=== PATIENT | female | born 1950 | race Caucasian/White ===

== ENCOUNTER 2020-05-14 10:36 | Outpatient (CLI) | payer MEDICARE, SELFPAY ==
--- NOTE | ~2020-05-14 | CT_ITS ---
EXAMINATION: CT abdomen pelvis wo/w con DATE: 05/14/2020 11:18 INDICATION: Other unspecified disorders of the kidney and ureter, right kidney mass TECHNIQUE: Computed tomography (CT) of the abdomen was performed without intravenous contrast. CT of the abdomen and pelvis was then performed with a total of 100 mL Omnipaque 350 intravenous contrast u sing a double-bolus technique for simultaneous opacification of the renal parenchyma and renal collec ting system. The dose-length product (DLP) was 1936.62 mGy-cm. Automated exposure control and iterati ve reconstruction technique were employed. COMPARISON: 09/29/2019 FINDINGS: There are clustered nodules in the right lower lobe which demonstrates increase in size sin ce the comparison examination. The heart size is normal. A small sliding hiatal hernia is again seen. A stable 8 mm area of low attenuation in the spleen likely represents a cyst. The liver and adrenal glands are normal. The gallbladder is surgically absent. There is fatty infiltration the head of the pancreas. There is a stable 12 mm hyperdense, nonenhancing mass of the right kidney. Peripelvic cysts are noted in the left kidney. There is calcified atherosclerosis of the aorta and many of the other arteries. No pathologically enlarged abdominal or pelvic lymph nodes are identified. There is no free intraperitoneal gas or evidence of bowel obstruction. Colonic diverticulosis is present without evid ence of diverticulitis. Again noted is a right lower quadrant incisional hernia containing fat. There is mild lumbar spondylosis. IMPRESSION: 1. Stable, nonenhancing right kidney mass, consistent with hemorrhagic or proteinaceous cyst. 2. Increasing nodular opacities of the right lower lobe, likely infectious or inflammatory. Recommend low-dose chest CT follow-up in three months. Reviewed, dictated and finalized at location A. IMPRESSION: 1. Stable, nonenhancing right kidney mass, consistent with hemorrhagic or prote inaceous cyst. 2. Increasing nodular opacities of the right lower lobe, likely infectious or i nflammatory. Recommend low-dose chest CT follow-up in three months.
[2020-05-14 11:09] LABS: Estimated Glomerular Filt Rate > 60
== END 2020-05-14 10:37 | disposition home or self-care (01) ==
PROVIDERS: PCP Internal Medicine; Visit Provider Internal Medicine
DX: N28.89 Other specified disorders of kidney and ureter (principal); R91.8 Other nonspecific abnormal finding of lung field
CPT/HCPCS: 36415; 74177; 74178; Q9967

== ENCOUNTER 2020-07-09 09:20 | Outpatient (CLI) | payer MEDICARE, SELFPAY ==
--- NOTE | 2020-07-09 09:29 | EST_ITS ---
Patient Info Name: Susanna Beaulieu Age: 69 years : 1950 Gender: Female Ht: 62 in Wt: 218 lbs BSA: 2.13 m2 HR: 73 bpm BP: 132 / 63 mmHg Technical Quality: Good Exam Date: 07/09/2020 9:59 AM Exam Location: [facility] Exam Room: stress lab Patient Status: Outpatient Admit Date: 07/09/2020 Staff Ordering Physician: Ne Vernon PIN CLE[employer]ER-[employer] Assistant: Geneva Major RCS Attending Provider: JOE SULLIVAN DO Referring Physician: Saulo SALCEDO; Exercise Technologist: Mariya Chan RDCS Exercise Physician: Joe Sullivan DO Exam Type: CA stress echo Study Info Indications R07.9 - Chest pain, unspecified Treadmill exercise stress echocardiogram is performed. Summary 1. 1. Negative Danish exercise stress test for ischemic ST changes by ECG criteria. 2. 2. Mildly reduced functional capacity, achieving 7 METs of workload. 3. 3. Baseline hypertension. 4. 4. Appropriate HR response to exercise. 5. 5. Appropriate HR recovery at 1 minute post exercise. 6. 6. Negative stress echocardiogram for ischemia by wall motion analysis. 7. 7. Patient informed of the above results. Stress Echo Findings Left Ventricle Appropriate increase in LV endocardial thickening with systole. Appropriate augmentation of contractility with systole. No wall motion abnormality. Left Ventricle Normal LV systolic function. No wall motion abnormality. Protocol: Danish Stress ECG Details Stage: REST Duration (min): 8 min : 42 sec Speed (mph): 0.0 Grade (%): 0 HR (bpm): 73 SBP (mmHg): 144 DBP (mmHg): 75 METS: --- Stage: REST Duration (min): 18 min : 49 sec Speed (mph): 0.0 Grade (%): 0 HR (bpm): 86 SBP (mmHg): 144 DBP (mmHg): 75 METS: --- Stage: STAGE 1 Duration (min): 1 min : 0 sec Speed (mph): 1.7 Grade (%): 10 HR (bpm): 97 SBP (mmHg): 144 DBP (mmHg): 75 METS: --- Stage: STAGE 1 Duration (min): 2 min : 0 sec Speed (mph): 1.7 Grade (%): 10 HR (bpm): 112 SBP (mmHg): 144 DBP (mmHg): 75 METS: --- Stage: STAGE 1 Duration (min): 3 min : 0 sec Speed (mph): 1.7 Grade (%): 10 HR (bpm): 119 SBP (mmHg): 172 DBP (mmHg): 63 METS: --- Stage: STAGE 2 Duration (min): 1 min : 0 sec Speed (mph): 2.5 Grade (%): 12 HR (bpm): 131 SBP (mmHg): 172 DBP (mmHg): 63 METS: --- Stage: STAGE 2 Duration (min): 2 min : 0 sec Speed (mph): 2.5 Grade (%): 12 HR (bpm): 138 SBP (mmHg): 196 DBP (mmHg): 68 METS: --- Stage: STAGE 2 Duration (min): 2 min : 1 sec Speed (mph): 0.0 Grade (%): 0 HR (bpm): 138 SBP (mmHg): 196 DBP (mmHg): 68 METS: --- Stage: RECOVERY Duration (min): 0 min : 58 sec Speed (mph): 0.0 Grade (%): 0 HR (bpm): 116 SBP (mmHg): 132 DBP (mmHg): 61 METS: --- Stage: RECOVERY Duration (min): 1 min : 58 sec Speed (mph): 0.0 Grade (%): 0 HR (bpm): 100 SBP (mmHg): 132 DBP (mmHg): 61 METS:
== END 2020-07-09 09:21 | disposition home or self-care (01) ==
LOC: ANHCARD 09:21
PROVIDERS: PCP Internal Medicine; Visit Provider Nurse Practitioner
DX: R07.9 Chest pain, unspecified (principal)
CPT/HCPCS: 93351

== ENCOUNTER 2020-07-16 07:34 | Outpatient (CLI) | payer MEDICARE, SELFPAY ==
--- NOTE | ~2020-07-16 | CT_ITS ---
EXAMINATION: CT brain wo con DATE: 07/16/2020 07:54 INDICATION: Headache TECHNIQUE: Computed tomography (CT) of the head was performed without intravenous contrast. Sagittal and coronal reconstructions were performed. The mA was adjusted according to patient size. Iterative reconstruction technique was employed. The dose-length product was 529.67 mGy-cm. COMPARISON: None FINDINGS: No acute intracranial hemorrhage, acute infarction or abnormal extra axial fluid collection. Ventricl es are normal and symmetric. No mass/mass effect. Changes of bilateral intraocular lens replacement. The orbits, paranasal sinuses and mastoid air cells are normal. IMPRESSION: 1. Normal brain. No acute intracranial process. Reviewed, dictated and finalized at location A.
== END 2020-07-16 07:35 | disposition home or self-care (01) ==
PROVIDERS: PCP Internal Medicine; Visit Provider Internal Medicine
DX: R51 Headache (principal)
CPT/HCPCS: 70450

== ENCOUNTER 2020-08-08 09:38 | Outpatient (CLI) | payer MEDICARE, SELFPAY ==
--- NOTE | ~2020-08-08 | MM_ITS ---
EXAMINATION: MM screening [facility] BI w gil HISTORY: Screening mammogram TECHNIQUE: Craniocaudal and mediolateral oblique 3-D tomosynthesis images were obtained and synthetic 2-D images were generated. CAD analysis was submitted and interpreted. COMPARISON: 07/30/2018, 11/02/2012 bilateral digital screening mammogram examinations BREAST PARENCHYMAL COMPOSITION: There are scattered areas of fibroglandular density.......... FINDINGS: Focal new architectural distortion is suggested in the outer mid right breast (craniocaudal Tomosynthesis image 29/72). Diagnostic right mammogram and right breast ultrasound examination are r ecommended. Otherwise there is no evidence of suspicious mass, calcification, or architectural distortion to sugg est malignancy in either breast. There has been no other suspicious interval change. IMPRESSION: 1. Focal new architectural distortion suggested in outer mid right breast 2. Diagnostic right mammogram and right breast ultrasound examination are recommended. BI-RADS Category 0: Incomplete: Needs additional imaging evaluation. Reviewed, dictated and finalized at location A. IMPRESSION: 1. Focal new architectural distortion suggested in outer mid right breast 2. Diagnostic right mammogram and right breast ultrasound examination are recom mended. BI-RADS Category 0: Incomplete: Needs additional imaging evaluation.
--- NOTE | ~2020-08-08 | DEXA_ITS ---
Bone Density Report Name: Susanna Beaulieu Age: 69 Sex: Female Ethnicity: White Date of : 1950 Indication: osteopenia; monitoring treatment; parental hip fracture; asthma or emphysema; hysterectomy; Referring Provider: Ne Vernon Study: Bone densitometry was performed. Exam Date: August 08, 2020 Accession number: [id number] Bone Density: Region BMD T-score Z-score Classification AP Spine (L1, L3, L4) 0.871 -1.7 0.5 Osteopenia Femoral Neck (Left) 0.673 -1.6 0.2 Osteopenia Total Hip (Left) 0.855 -0.7 0.8 Normal Total Hip Bilateral Avg 0.885 -0.4 1.1 Normal Femoral Neck (Right) 0.752 -0.9 0.9 Normal Total Hip (Right) 0.914 -0.2 1.3 Normal World Health Organization criteria for BMD impression classify patients as: Normal (T-score at or above -1.0), Osteopenia (T-score between -1.0 and -2.5), or Osteoporosis (T-score at or below -2.5). 10-year Fracture Risk: FRAX not reported because: Treated for osteoporosis Previous Exams: Region Exam Age BMD T-score BMD Change BMD Change Date g/cm2 vs Baseline vs Previous AP Spine(L1, L3, L4) 08/08/2020 69 0.871 -1.7 0.048(5.8%)# 0.048(5.8%)# 11/02/2012 62 0.823 -2.1 Total Hip(Left) 08/08/2020 69 0.855 -0.7 -0.072(-7.8%)# -0.072(-7.8%)# 11/02/2012 62 0.928 -0.1 Total Hip(Right) 08/08/2020 69 0.914 -0.2 -0.024(-2.6%)# -0.024(-2.6%)# 11/02/2012 62 0.939 0.0 *Denotes significance at 95% confidence level, LSC for AP Spine = 0.022 g/cm2, LSC for Total Hip = 0.027 g/cm2 Clinical Information Provided by Patient: Parent has had a hip fracture Is being treated for osteoporosis Has used the following medications: Vitamin D, Calcium Has the following medical conditions: Asthma or Emphysema, Hysterectomy Patient maximum height was 62 Menopause Age: 55 No regular weight bearing exercise Drinks caffeinated beverages Onset of menses at age 13 Number of children 2 Impression: The patient has low bone mass, based on the Total Spine T-score. The patient has risk factors, including: parental hip fracture. No significant bone loss was observed. Discussion: PATIENT UNDER TREATMENT WITH NO SIGNIFICANT BMD LOSS SINCE LAST EXAM. In an untreated patient, BMD typically declines with age. A lack of decline or gain is usually a sign that treatment is efficacious and fracture risk is reduced. It is important to ask patients whether they are taking their medications and to encourage continued and approp
== END 2020-08-08 09:39 | disposition home or self-care (01) ==
LOC: ANHIMG 09:39
PROVIDERS: PCP Internal Medicine; Visit Provider Nurse Practitioner
DX: Z12.31 Encounter for screening mammogram for malignant neoplasm of breast (principal); Z78.0 Asymptomatic menopausal state; M85.88 Other specified disorders of bone density and structure, other site; R92.8 Other abnormal and inconclusive findings on diagnostic imaging of breast
CPT/HCPCS: 77063; 77067; 77080

== ENCOUNTER 2020-08-31 11:08 | Outpatient (CLI) | payer MEDICARE, SELFPAY ==
--- NOTE | ~2020-08-31 | MMUS_ITS ---
EXAMINATION: MM diagnostic mammo unilat RT, US breast RT limited HISTORY: Follow-up right breast asymmetry TECHNIQUE: Additional 3-D tomosynthesis images of the right breast were performed and synthetic 2-D i mages were generated. CAD analysis was submitted and interpreted. High resolution Limited right breas t ultrasound was performed. COMPARISON: 08/08/2020 BREAST PARENCHYMAL COMPOSITION: Breast composed of scattered areas of fibroglandular density. FINDINGS: MAMMOGRAPHIC FINDINGS: There is persistent asymmetry laterally in the right breast, on CC view. There are no discrete masses or suspicious calcifications. No architectural distortion. ULTRASOUND: Right breast ultrasound: At 8:00 in the subareolar location of the right breast there is an 12 mm oval hypoechoic mass with sl ightly lobulated margins. Mixed posterior attenuation. No internal vascularity. IMPRESSION: 1. Lobulated 12 mm right breast mass at 8:00 in the subareolar location of the right breast. 2. Ultrasound-guided right breast biopsy recommended. BI-RADS category 4, suspicious findings. Reviewed, dictated and finalized at location A. IMPRESSION: 1. Lobulated 12 mm right breast mass at 8:00 in the subareolar location of the right breast. 2. Ultrasound-guided right breast biopsy recommended. BI-RADS category 4, suspicious findings.
== END 2020-08-31 11:09 | disposition home or self-care (01) ==
LOC: ANHIMG 11:11
PROVIDERS: PCP Internal Medicine; Visit Provider Nurse Practitioner
DX: R92.8 Other abnormal and inconclusive findings on diagnostic imaging of breast (principal)
CPT/HCPCS: 76642; 77065

== ENCOUNTER 2020-09-06 10:38 | Outpatient (CLI) | payer MEDICARE, SELFPAY ==
--- NOTE | ~2020-09-06 | MMUS_ITS ---
US breast biopsy RT w image, MM post biopsy invasive RT EXAMINATION: US GUIDED NEEDLE BIOPSY WITH VAC UUM ASSISTANCE DATE: 09/06/2020 11:46 CDT INDICATION: Right breast mass seen on prior examination. Ultrasound-guided core biopsy is requested to evaluate for malignancy. TECHNIQUE AND FINDINGS: The risks and potential benefits of the procedure were discussed with the patient, and written inform ed consent was obtained. After sterile preparation of the right breast, 1% lidocaine was utilized fo r local anesthesia. 1% lidocaine with epinephrine was used for deep anesthesia. A 10G vacuum-assisted biopsy gun needle was advanced through to the outer edge of the region of inter est from a superior approach utilizing sonographic guidance. A total of three tissue core samples we re obtained through the lesion. An Inrad tissue marker clip was then placed at the biopsy site. Hemo stasis was achieved. The patient tolerated procedure well and there was no evidence of immediate complication. The patien t was given verbal instructions partly is from the department. Right breast mammograms to document t issue marker clip placement. The tissue samples were submitted to surgical pathology for histologic a nalysis. IMPRESSION: 1. Successful ultrasound-guided vacuum-assisted biopsy of right breast mass at the 8:00 position in the subareolar location with tissue marker placement. Please refer to pathology report for histologic analysis. Reviewed, dictated and finalized at location A. IMPRESSION: 1. Successful ultrasound-guided vacuum-assisted biopsy of right breast mass at the 8:00 position in the subareolar location with tissue marker placement. Ple ase refer to pathology report for histologic analysis.
== END 2020-09-06 10:39 | disposition home or self-care (01) ==
PROVIDERS: PCP Internal Medicine; Visit Provider Nurse Practitioner
DX: R92.8 Other abnormal and inconclusive findings on diagnostic imaging of breast (principal)
CPT/HCPCS: 19083; 88305

== ENCOUNTER 2020-09-28 13:04 | Outpatient (CLI) | payer MEDICARE, SELFPAY ==
--- NOTE | ~2020-09-28 | CT_ITS ---
EXAMINATION:CT chest wo con DATE: 09/28/2020 13:18 INDICATION: Other nonspecific abnormal finding in lung field. TECHNIQUE: Computed tomography (CT) of the chest was performed without intravenous contrast. Automate d exposure control and iterative reconstruction technique were employed. The dose-length product (DLP ) was 308.18 mGy-cm. COMPARISON: CT abdomen and pelvis 05/14/2020 FINDINGS: There is mild scarring at right lung apex. There is mild atelectasis bilaterally. There is mild scarring in paraspinal right lower lobe. There are clusters of nodules in the lower lobes, right middle lobe, and left upper lobe with the largest nodule measuring 6 mm in right lower lobe, improve d from 10 mm on 05/14/2020. The next largest nodule measures 4 mm. No pleural effusion. Right thyroid lobe is enlarged. The heart size is normal. There are coronary artery calcifications. No pericardial effusion. There is a small sliding hiatal hernia. There are changes of cholecystectomy. There is mild thoracic spondylosis. IMPRESSION: 1. Small pulmonary nodules, likely benign. Reviewed, dictated and finalized at location A. 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
== END 2020-09-28 13:05 | disposition home or self-care (01) ==
LOC: ANHIMG 13:06
PROVIDERS: PCP Internal Medicine; Visit Provider Internal Medicine
DX: R91.8 Other nonspecific abnormal finding of lung field (principal)
CPT/HCPCS: 71250

== ENCOUNTER 2021-04-29 13:30 | Emergency (ER) | payer MEDICARE, SELFPAY ==
--- NOTE | ~2021-04-29 | US_ITS ---
EXAMINATION: US venous doppler [facility] DATE: 04/29/2021 15:19 INDICATION: Left lower limb pain. TECHNIQUE: Grayscale ultrasound images without and with compression and Doppler ultrasound images of the left lower extremity veins were obtained. COMPARISON: None. FINDINGS: The visualized portions of left common femoral vein, profunda (deep) femoral vein, femoral vein, popl iteal vein, peroneal veins, posterior tibial veins, and greater saphenous vein outflow are patent. Th ere is no visible abnormality in the patient's area of pain. IMPRESSION: 1. No deep venous thrombosis. Reviewed, dictated and finalized at location A.
[2021-04-29 13:40] VITALS: BP 175/95; PULSE 87; RESP 18; TEMP 36.7; O2SAT 99
--- NOTE | 2021-04-29 13:45 | PC.NURSE ---
Arrives ambulatory steady gait from triage, c/o LLE pain x few days, denies falls or trauma, took a baby ASA this am as she was concerned for blood clot. Pt states a few years ago she may have had possible blood clot they gave a me a shot of blood thinner because it was too late to do an ultrasound, then the next day they did the US and it was negative . Denies SOB, no resp distress
--- NOTE | 2021-04-29 14:45 | ED.EXTPRO ---
HPI - Extremity Problem General Chief complaint: Extremity Problem,Nontraumatic Stated complaint: left calf pain Time Seen by Provider: 04/29/21 13:54 Source: patient Mode of arrival: ambulatory Limitations: no limitations History of Present Illness HPI Narrative: Patient is a 70-year-old female who presents complaining of posterior left leg pain x3 or 4 days. She reports increased pain over the past day. Denies history of DVT. Reports tenderness with palpation to left posterior calf. Mild swelling noted. She denies taking any [id number]-[id number]-[id number] medications for pain. She reports calling PCP office and being sent to ED for further evaluation. MD Complaint: extremity pain Related Data Home Medications Medication Instructions Recorded Confirmed diphenoxylate-atropine 2.5 1 tablet PO DAILY tablet 03/27/21 03/27/21 mg-0.025 mg tablet mirabegron 25 mg tablet,extended 25 mg PO DAILY 03/28/21 03/28/21 release 24 hr Allergies Allergy/AdvReac Type Severity Reaction Status Date / Time No Known Allergies Allergy Unverified 04/29/21 14:02 Review of Systems Review of Systems: Narrative: CONSTITUTIONAL: Denies fever, chills, or sweats. EYES: Denies visual changes, redness, or discharge. ENT: Denies rhinorrhea, congestion, sore throat, or otalgia. CARDIOVASCULAR: Denies chest pain, palpitations, or edema. RESPIRATORY: Denies cough or dyspnea. GASTROINTESTINAL: Denies abdominal pain, nausea, vomiting, or diarrhea. GENITOURINARY: Denies dysuria or hematuria. SKIN: Denies rash or itching. MUSCULOSKELETAL: Reports left leg pain NEUROLOGIC: Denies headache, numbness, dizziness, or weakness. PSYCHIATRIC: Denies anxiety or depression. [facility] Past Medical History Medical History Chest pain Cough Dyslipidemia (high LDL; low HDL) Gastro-esophageal reflux disease without esophagitis Hypovitaminosis D Left lower quadrant pain Mass of right kidney Menopausal osteoporosis Mild intermittent asthma, uncomplicated Osteopenia Overactive bladder Screening for breast cancer Urinary urgency Surgical History Surgical History H/O: hysterectomy History of 2 sections History of appendectomy History of breast biopsy History of cholecystectomy Family History Family History Mother Family history of obesity Hypertension Family history of atrial fibrillation Family history of congestive heart failure Father Hypertension Cerebrovascular accident Patient's father is Family history of congestive heart failure Sibling History of skin cancer Social History Social History Smoking packs per day: 2 Smoking cigarettes per day: 40.0 Years smoked: 12 Smoking pack-years: 24.00 Smoking status: Former smoker Tobacco type: cigarettes Second hand tobacco smoke exposure: Yes Smoking end date: 11/23/88 Alcohol intake: current Drinks per week: 4 Gender identity (if verbalized by the patient): Female Comments At the time of signature, I have reviewed and agree with nursing past medical, surgical, social, and family history unless otherwise noted. Please see nursing chart for further information. There is no relevant family history pertinent to the presenting complaint. Exam Narrative: Exam Narrative: GENERAL: Well-appearing, well-nourished, and in no acute distress. HEAD: Normocephalic, atraumatic. EYES: EOMI. No redness or drainage. Conjunctiva are normal. ENT: Mucous membranes pink and moist. CHEST: No respiratory distress. Clear to auscultation. HEART: Regular rate and rhythm. No murmur appreciated. Normal peripheral pulses. EXTREMITIES: Tenderness with palpation to left posterior calf and posterior knee. Mild edema noted to the left lower extremity. SKIN: Warm, dry, no
--- NOTE | 2021-04-29 15:13 | PC.NURSE ---
Pt returned from US via WC, pt and updated on POC. No resp distress, call light within reach
== END 2021-04-29 16:00 | disposition home or self-care (01) ==
PROVIDERS: Emergency Provider Nurse Practitioner; PCP Internal Medicine
DX: S86.912A Strain of unspecified muscle(s) and tendon(s) at lower leg level, left leg, initial encounter (principal); E78.5 Hyperlipidemia, unspecified; K21.9 Gastro-esophageal reflux disease without esophagitis; E55.9 Vitamin D deficiency, unspecified; M81.0 Age-related osteoporosis without current pathological fracture; M85.80 Other specified disorders of bone density and structure, unspecified site; N32.81 Overactive bladder; Z87.891 Personal history of nicotine dependence; R03.0 Elevated blood-pressure reading, without diagnosis of hypertension
CPT/HCPCS: 93971; 99284

== ENCOUNTER 2021-11-21 13:30 | Outpatient (RCR) | payer MEDICARE, SELFPAY ==
--- NOTE | 2021-10-24 10:23 | PTOPEVAL ---
PHYSICAL THERAPY EVALUATION AND PLAN OF CARE 10-24-21 Thank you for referring Susanna Beaulieu to [facility], for the diagnosis of R upper arm pain. Susanna is scheduled to be seen for therapy? 1-2 x/week for 4 weeks. Please review, sign, date and return this plan of care JOSEFA. I agree with and certify that the following plan of care is medically necessary. Referring Physician Date Attending Provider: Antonio Villarreal DO *PT Outpatient Evaluation Document 10/24/21 09:30 RADHA (Rec: 10/24/21 10:23 RADHA [id number]) Past Medical History Source of Past Medical History Patient Neurological History Hx Neurological Disorders No Significant History Cardiovascular History Hx Hypercholesterolemia Yes: meds Respiratory History Hx Asthma Yes Gastrointestinal History Hx Appendectomy Yes Musculoskeletal History Hx Orthopedic Surgery Yes: R knee arthroscopy Hx Other Musculoskeletal Disorders Yes: B knee pain; this R shoulder pain Endocrine History Hx Endocrine Disorders No Significant History Other History Hx Other Medical Conditions Yes: obesity Evaluation Information Problem Diagnosis R upper arm pain Onset Jul 2021 Subjective Information no trauma or injury to R arm; Query Text:As Reported By Patient/ gradual onset of pain R Family shoulder;no imaging of shoulder Previous Treatments Previous Treatments For This Problem about 10 yr ago, therapy for R upper trunk/shoulder Prior Level of Function Activity Level (Last 3 Months) Occupation retired Hand Dominance Ambidextrous Activity of Daily Living Ability Independent Indoor/Home Mobility Independent Community Mobility Independent Stairs Ability Independent Functional Cognition (Planning, Shopping Independent , Taking Medications) Cooking Yes Cleaning Yes Laundry Yes Shopping Yes Driving Yes Comments Additional Prior Level of Function can do all home tasks; Comments increase pain with reaching arm out to the side; Pain Assessment Timing of Pain Assessment Timing of Pain Assessment Assessment Pain Scale Pain Scale Used Numeric (1 - 10) Self Report Pain Assessment Right Arm(s) Reported Pain Level 1 Pain Frequency Acute,Continuous Other Pain Description bone hurts- medial aspect of upper humerus Lowest Pain Intensity 0 Greatest Pain Intensity 6 Other Pain Aggr
--- NOTE | 2021-11-21 13:53 | PTOPEVAL ---
PHYSICAL THERAPY DISCHARGE 11-21-21 Refer to the clinical summary below, for her status today, compared to the initial evaluation. She has improved and the goals were partially achieved. Discharge PT services, and she is to continue with her home exercise program. Thank you for referring Susanna Beaulieu to [facility].? Please review, sign, date and return this Discharge report JOSEFA. I agree with and certify that the following plan of care is medically necessary. Referring Physician Date Attending Provider: Antonio Villarreal DO *PT Outpatient Discharge Document 11/21/21 13:15 RADHA (Rec: 11/21/21 13:53 RADHA [id number]) Subjective Information Susanna reports: shoulder is Query Text:As Reported By Patient/ better, can reach out for Family coffee cup on the table with only little pain, sometimes does not hurt at all when do it; ready to be finished with PT and do her exercises on her own. Pain Assessment Timing of Pain Assessment Timing of Pain Assessment Assessment Pain Scale Pain Scale Used Numeric (1 - 10) Self Report Pain Assessment Right Arm(s) Reported Pain Level 0 Pain Frequency Chronic,Intermittent Lowest Pain Intensity 0 Greatest Pain Intensity 1 Other Pain Aggravating Factors reaching R arm out and to side ; Pain Score Pain Score 0: Self Report Additional Pain Score Comments when reaching out and to side for coffee cup-- increase pain and stress of shoulder ; do OK reaching up to put dishes away on kitchen shelf; Upper Extremity Range of Motion General Upper Extremity Range of Motion Gross Upper Extremity Range of Motion R shoulder active ROM flexion, Comments abduction, IR and ER motions are WNL, without an increase in pain reported; with combined abduction to 90' and ER- reports increased pain- reaching out to the side Upper Extremity Muscle Strength Testing General Upper Extremity Strength Gross Upper Extremity Strength Comments functional strength testing with activity: - prone scapular adduction with arm at 90' x 20 reps; overhead lift to neutral x 15 reps; - standing: isometric trunk with back to the wall; pec stretching in doorway,
== END 2021-11-26 08:15 | disposition home or self-care (01) ==
LOC: ANHPT 13:30
PROVIDERS: PCP Internal Medicine; Visit Provider Internal Medicine
DX: M79.622 Pain in left upper arm (principal); M79.621 Pain in right upper arm
CPT/HCPCS: 97110; 97161

== ENCOUNTER 2022-03-11 09:10 | Outpatient (CLI) | payer MEDICARE, SELFPAY ==
--- NOTE | ~2022-03-11 | CT_ITS ---
EXAMINATION: CT brain wo con DATE: 03/11/2022 09:31 INDICATION: Right frontal headache. TECHNIQUE: Computed tomography (CT) of the head was performed without intravenous contrast. The mA wa s adjusted according to patient size. Iterative reconstruction technique was employed. The dose-lengt h product was 529.67 mGy-cm. COMPARISON: Head CT 07/16/2020 FINDINGS: There is no intracranial hemorrhage, acute infarction, or abnormal intracranial mass lesion . The ventricles are normal in size. There are likely changes of ocular lens replacement surgeries. T here is mild mucosal thickening in the paranasal sinuses. The mastoid air cells are normal. IMPRESSION: 1. Normal brain. Reviewed, dictated and finalized at location B. IMPRESSION: 1. Normal brain.
== END 2022-03-11 09:11 | disposition home or self-care (01) ==
PROVIDERS: PCP Internal Medicine; Visit Provider Internal Medicine
DX: R51.9 Headache, unspecified (principal)
CPT/HCPCS: 70450

== ENCOUNTER 2022-05-27 09:30 | Outpatient (RCR) | payer MEDICARE, SELFPAY ==
--- NOTE | 2022-05-05 10:20 | PTOPEVAL ---
PHYSICAL THERAPY EVALUATION AND PLAN OF CARE Thank you for referring Susanna Beaulieu to [facility].? The patient is scheduled to be seen in 3 weeks for physical therapy follow up. Please review, sign, date and return this plan of care JOSEFA. I agree with and certify that the following plan of care is medically necessary. Referring Physician Date Attending Provider: Hi Anderson MD Diagnosis left knee OA Onset chronic Subjective Information States she has been having Query Text:As Reported By Patient/ left knee pain. States she Family needs a knee replacement. Doctor wants her to lose weight before she has procedure. Has good days and bad days. States that at any point she has felt sharp pains , dull pains, she feels like the knee cap is falling away. States she will use a cane for a little bit in the morning at home and that seems to help decrease pain the rest of the day. Left Knee(s) Reported Pain Level 4 Knee Range of Motion Left Knee Flexion Range of Motion: 104 Knee Extension Range of Motion: -10 Hip Strength Left Hip Flexion Strength 4 Good Hip Extension Strength 4- Good - Hip Abduction Strength 4- Good - Knee Strength Left Knee Flexion Strength 4 Good Knee Extension Strength 3+ Fair + Knee Strength Comments poor to fair quad set Muscle Length Testing Right Prone Knee Flexor Muscle Length 110deg Left Prone Knee Flexor Muscle Length 85deg Palpation increased muscle tension noted to left distal quadriceps with mild tenderness noted Other Gait Observations mild Trendelenburg PT Clinical Summary Susanna is a 71 yo female presenting to outpatient physical therapy for evaluation of left knee pain with OA. Evaluation reveals poor left quadriceps activation and poor gluteal activation in stance phase walking and stair climbing. She also demonstrates decreased left knee ROM and general strength of the left LE. Susanna was provided teaching for neuro re-education for quads and gluteals and educated on home exercise program. I recommend she follow up in 3 weeks to review HEP and assess for further PT needs.
--- NOTE | 2022-05-27 10:10 | PTOPEVAL ---
PHYSICAL THERAPY DISCHARGE NOTE Thank you for referring Susanna Beaulieu to [facility].? Please review, sign, date and return this plan of care JOSEFA. I agree with and certify that the following plan of care is medically necessary. Referring Physician Date Attending provider: Hi Anderson MD Diagnosis left knee OA Onset chronic Subjective Information Continues to report that she Query Text:As Reported By Patient/ continues to pursue a knee Family replacement and she is doing her home exercises. She uses her cane in the mornings and intermittently and she finds that it helps to take the edge off. Self Report Pain Assessment Left Knee(s) Reported Pain Level 3 Pain Description Aching Pain Frequency Chronic,Continuous Lowest Pain Intensity 1 Greatest Pain Intensity 10 Pain Aggravating Factors Prolonged Position,Walking, Weight Bearing/Standing Pain Behaviors None Knee Range of Motion Left Knee Flexion Range of Motion - Active 109 Knee Extension Range of Motion - Active -5 Query Text: Lower Extremity Muscle Strength Testing Hip Strength Left Hip Flexion Strength 5 Normal Hip Extension Strength 4+ Good + Hip Abduction Strength 4+ Good + Knee Strength Left Knee Flexion Strength 5 Normal Knee Extension Strength 5 Normal Knee Strength Comments good quad set Muscle Length Testing Right Prone Knee Flexor Muscle Length ( 110deg Left Prone Knee Flexor Muscle Length ( 100deg PT Clinical Summary Susanna has been performing her HEP for 3 weeks and is already demonstrating increased motor recruitment and improved gait pattern. Her ROM is progressing and her quad set is demosntrating good activation and endurance. She will continue HEP and continue work on losing weight in order to further pursue TKA. PT Services Indicated No Rehabilitation Potential Good Patient/Caregiver's Personal Goals for decrease pain; prepare for TKA
== END 2022-05-27 13:41 | disposition home or self-care (01) ==
LOC: ANHPT 09:30
PROVIDERS: PCP Internal Medicine; Visit Provider Orthopaedic Surgery
DX: M17.12 Unilateral primary osteoarthritis, left knee (principal); M25.562 Pain in left knee
CPT/HCPCS: 97110; 97112; 97161

== ENCOUNTER 2022-07-30 15:30 | Outpatient (RCR) | payer MEDICARE, SELFPAY ==
--- NOTE | 2022-07-16 15:08 | PTOPEVAL ---
Thank you for referring Susanna Beaulieu to [facility].? She is scheduled to be seen for therapy? 2 x/week for 3 weeks. Please review, sign, date and return this plan of care JOSEFA. I agree with and certify that the following plan of care is medically necessary. Referring Physician Date Attending Provider: Antonio Villarreal DO Outpatient Past Medical History Past Medical History Source of Past Medical History Recalled from Previous Visit, Confirmed with Patient/Family Neurological History Hx Neurological Disorders No Significant History Cardiovascular History Hx Hypercholesterolemia Yes: meds Hx Hypertension Yes: meds Respiratory History Hx Asthma Yes Gastrointestinal History Hx Appendectomy Yes Musculoskeletal History Hx Arthritis Yes: fingers and knees; saw ortho dr about L TKR-not scheduled Hx Orthopedic Surgery Yes: R knee arthroscopy Hx Other Musculoskeletal Disorders Yes: B knee pain; R shoulder pain Endocrine History Hx Endocrine Disorders No Significant History Other History Hx Other Medical Conditions Yes: obesity Evaluation Information Diagnosis lower quadrant pain Onset May 23 2022 Subjective Information gradual increase in pain, no Query Text:As Reported By Patient/ trauma or injury to L leg Family Diagnostic Tests X-Rays For This Problem Yes: L knee severe tricompartment degenerative, decrease jt space Prior Level of Function Activity Level (Last 3 Months) Occupation retired Activity of Daily Living Ability Independent Indoor/Home Mobility Independent Community Mobility Independent Stairs Ability Independent Functional Cognition (Planning, Shopping Independent , Taking Medications) Cooking Yes Cleaning Yes Laundry Yes Shopping Yes Driving Yes Home Setting Mobility Assistive Devices (Used Last 3 None,Cane Months) Comments Additional Prior Level of Function use cane for first hour after Comments awakening, due to knees stiff; do pool exercises 2x/wk; Pain Assessment Pain Scale Pain Scale Used Numeric (1 - 10) Self Report Pain Assessment Left Hip Pain Frequency Acute,Intermittent Other Pain Description anterior hip--medial groin pain when put pants on,last few seconds; Lowest Pain Intensity 0
--- NOTE | 2022-09-05 11:43 | PCPTNOTE ---
PHYSICAL THERAPY DISCHARGE 09-05-22 Attending Provider: Antonio Villarreal DO Patient:Susanna Beaulieu Date of :1950 Mrs. Beaulieu has received 3 PT sessions, from July 16 to July 30, for the diagnosis of L leg pain. She then stopped attending therapy. Therefore she will be discharged at this time. The goals were not assessed. Thank you for referring this patient to [facility].
== END 2022-09-05 14:16 | disposition home or self-care (01) ==
LOC: ANHPT 15:30
PROVIDERS: PCP Internal Medicine; Visit Provider Internal Medicine
DX: R10.32 Left lower quadrant pain (principal)
CPT/HCPCS: 97035; 97110; 97140; 97161

== ENCOUNTER 2022-10-29 10:05 | Outpatient (CLI) | payer MEDICARE, SELFPAY ==
--- NOTE | ~2022-10-29 | US_ITS ---
EXAMINATION: US renal BI DATE: 10/29/2022 10:41 INDICATION: N28.1 - Cyst of kidney, acquired TECHNIQUE: Multiple grayscale and Doppler ultrasound images of the kidneys were obtained. COMPARISON: CT abdomen pelvis 05/14/2020 FINDINGS: The right kidney measures 10.9 x 5.8 x 4.5 cm. The left kidney measures 12.2 x 5.8 x 5.3 cm. The kidn eys demonstrate normal parenchymal echogenicity. 1 cm hypoechoic circumscribed partially exophytic le mateo in the right lower pole. 2 cm left parapelvic cyst or cysts. There is no hydronephrosis. The boyd dder is partially filled but grossly normal. IMPRESSION: Unremarkable renal sonogram findings. 1 cm hemorrhagic or proteinaceous right lower pole cyst. Parape lvic cyst/cysts in the left renal hilum. Reviewed, dictated and finalized at location K. P HERDER IMPRESSION: Unremarkable renal sonogram findings. 1 cm hemorrhagic or proteinaceous right l ower pole cyst. Parapelvic cyst/cysts in the left renal hilum.
== END 2022-10-29 10:06 | disposition home or self-care (01) ==
LOC: ANHIMG 10:06
PROVIDERS: PCP Internal Medicine; Visit Provider Internal Medicine
DX: N28.1 Cyst of kidney, acquired (principal)
CPT/HCPCS: 76775

== ENCOUNTER 2022-11-20 14:27 | Emergency (ER) | payer MEDICARE, SELFPAY ==
[2022-11-20 14:39] VITALS: BP 127/82; PULSE 66; RESP 16; TEMP 37; O2SAT 99
--- NOTE | 2022-11-20 14:50 | ED.URI ---
HPI - URI/Sore Throat General Chief Complaint: Upper Respiratory Infection Stated Complaint: SOB/Bodyaches Time Seen by Provider: 11/20/22 14:51 Source: patient Mode of arrival: ambulatory Limitations: no limitations History of Present Illness HPI Narrative: Ms. Beaulieu is a 72-year-old female patient presenting to the clinic today with complaints of shortness of breath, body aches, chills, cough x5 days. She reports no known fever. MD elicited complaint: cough, nasal congestion and other ( body aches and chills) Related Data Allergies Allergy/AdvReac Type Severity Reaction Status Date / Time No Known Allergies Allergy Verified 11/20/22 14:47 Review of Systems Review of Systems: Pertinent positives per HPI. Patient denies any fever, chills, rash, headache, visual changes, dizziness, shortness of breath, chest pain, palpitations, nausea, vomiting, diarrhea, constipation, abdominal pain, or any urinary issues. PMFSH Past Medical History Medical History Chest pain Cough Dyslipidemia (high LDL; low HDL) Gastro-esophageal reflux disease without esophagitis History of stress test (~2020) Hypovitaminosis D Left lower quadrant pain Mass of right kidney Menopausal osteoporosis Mild intermittent asthma, uncomplicated Obesity due to excess calories Osteopenia Overactive bladder Screening for breast cancer Urinary urgency Surgical History Surgical History H/O: hysterectomy History of 2 sections History of appendectomy History of breast biopsy x3 History of cholecystectomy History of tooth extraction Family History Family History Mother Family history of obesity Hypertension Family history of atrial fibrillation Family history of congestive heart failure Father Hypertension Cerebrovascular accident Patient's father is Family history of congestive heart failure Sibling History of skin cancer Social History Social History Smoking packs per day: 2 Smoking cigarettes per day: 40.0 Years smoked: 12 Smoking pack-years: 24.00 Smoking status: Former smoker Tobacco type: cigarettes Second hand tobacco smoke exposure: Yes Smoking end date: 11/23/88 Alcohol intake: current Drinks per week: 2 Substance use: never Substance use type: does not use Lack of Transportation: No Lack of Food: Never True Current Housing: I Have Housing Concerned About Future Housing: No Difficulty Paying Gas/Electric Bills: No Difficulty Paying for Meds: No Currently Unemployed: No Education: High School Diploma/GED Difficulty w/ Childcare or Family Care: No Gender identity (if verbalized by the patient): Female Comments At the time of my signature, I reviewed and agree with the nursing past medical, surgical, social, and family history. There is no relevant family history pertinent to the patient complaint. Exam Narrative: General: Well-developed, obese, in no apparent distress Head: Normocephalic, atraumatic Eyes: Pupils equally round and reactive to light bilaterally, EOM intact, sclera and conjunctive clear, no discharge, lids normal Ears: TMs intact and clear, ear canals clear, no drainage, grossly hearing normal. Nose: Nares patent, clear nasal discharge, no inflammation, no sinus tenderness. Mouth: Oral pharynx without lesions or masses, good dentition, MMM. postnasal drip Neck: Supple, trachea midline, no enlargement of anterior or posterior cervical nodes, no thyroid masses or goiter palpable. Cardio: Regular rate and rhythm, s1 and s2 normal, no murmur appreciated. Resp: Clear to auscultation bilaterally, no rhonchi, rales, wheezing or rubs Course Course Emergency Course: Portions of this record may hav
== END 2022-11-20 15:23 | disposition home or self-care (01) ==
PROVIDERS: Emergency Provider Nurse Practitioner Family; PCP Internal Medicine
DX: J06.9 Acute upper respiratory infection, unspecified (principal); B34.9 Viral infection, unspecified; Z20.822 Contact with and (suspected) exposure to COVID-19; Z87.891 Personal history of nicotine dependence; E78.5 Hyperlipidemia, unspecified; E66.9 Obesity, unspecified; Z68.39 Body mass index [BMI] 39.0-39.9, adult; M85.80 Other specified disorders of bone density and structure, unspecified site
CPT/HCPCS: 87426; 87804; 99213; C9803; G0463

== ENCOUNTER 2023-02-17 08:00 | Outpatient (NON) | payer MEDICARE, SELFPAY | END 2023-02-17 08:01 | disposition home or self-care (01) | LOC: ANHLAB 02-20 10:41 | PROVIDERS: PCP Internal Medicine; Visit Provider Nurse Practitioner | DX: D49.2 Neoplasm of unspecified behavior of bone, soft tissue, and skin (principal) | CPT/HCPCS: 88305; 88312 ==

== ENCOUNTER 2023-02-24 09:32 | Outpatient (CLI) | payer MEDICARE, SELFPAY ==
--- NOTE | ~2023-02-24 | CT_ITS ---
EXAMINATION: CT brain wo con INDICATION: Headache COMPARISON: 03/11/2022 TECHNIQUE: Standard unenhanced head CT. The dose-length product (DLP) was 605.33 mGy-cm. The mA was a djusted according to patient size. Iterative reconstruction technique was employed. FINDINGS: There is no acute intraparenchymal hemorrhage. No evidence of mass lesion. No evidence of a cute infarction. There is mild periventricular and subcortical hypodensity probably related to small vessel ischemic disease. There is mild prominence of the sulci and ventricles related to cerebral atr ophy. Intracranial calcified cerebral atherosclerosis is noted. There are no extra-axial collections. There is no mass effect or midline shift. Changes in the globes are likely from ocular lens surgery. The visualized sinuses and mastoid air cells are well aerated. IMPRESSION: 1. No acute intracranial abnormality. 2. Age related findings. Reviewed, dictated and finalized at location L.
== END 2023-02-24 09:33 | disposition home or self-care (01) ==
PROVIDERS: PCP Internal Medicine; Visit Provider Nurse Practitioner Family
DX: R51.9 Headache, unspecified (principal)
CPT/HCPCS: 70450

== ENCOUNTER 2023-05-01 11:19 | Outpatient (CLI) | payer MEDICARE, SELFPAY ==
--- NOTE | ~2023-05-01 | XR_ITS ---
PA, oblique, and lateral views of the left thumb CLINICAL HISTORY: Pain FINDINGS: There is mild degenerative change at the first CMC joint, first MCP joint, and the interpha langeal joint of the thumb. No fracture or dislocation seen. Soft tissues are unremarkable. IMPRESSION: Degenerative changes involving the thumb, as detailed above. No fracture or dislocation. Reviewed, dictated and finalized at location .
== END 2023-05-01 11:20 | disposition home or self-care (01) ==
LOC: ANHIMG 11:23
PROVIDERS: PCP Family Medicine; Visit Provider Family Medicine
DX: M18.12 Unilateral primary osteoarthritis of first carpometacarpal joint, left hand (principal)
CPT/HCPCS: 73140

== ENCOUNTER 2023-07-25 10:40 | Outpatient (CLI) | payer MEDICARE, SELFPAY ==
--- NOTE | ~2023-07-25 | DEXA_ITS ---
Bone Density Report Name: MONTEZ GONZALEZ Age: 72 Sex: Female Ethnicity: White Date of : 1950 Indication: postmenopausal; screening for osteoporosis; inflammatory bowel disease; asthma or emphysema; hysterectomy; Referring Provider: EDGAR ETIENNE Study: Bone densitometry was performed. Exam Date: July 25, 2023 Accession number: [id number] Bone Density: Region BMD T-score Z-score Classification AP Spine(L1-L4) 0.817 -2.1 0.2 Osteopenia Femoral Neck (Left) 0.659 -1.7 0.2 Osteopenia Total Hip (Left) 0.895 -0.4 1.3 Normal Femoral Neck (Right) 0.764 -0.8 1.2 Normal Total Hip (Right) 0.908 -0.3 1.4 Normal Total Hip Mean 0.901 -0.4 1.4 Normal World Health Organization criteria for BMD impression classify patients as: Normal (T-score at or above -1.0), Osteopenia (T-score between -1.0 and -2.5), or Osteoporosis (T-score at or below -2.5). 10-year Fracture Risk(1): Major Osteoporotic Fracture 9.8% Hip Fracture 1.7% Reported Risk Factors: [place] (), Neck BMD=0.659, BMI=42.1 (1) FRAX(R) Version 3.08. Fracture probability calculated for an untreated patient. Fracture probability may be lower if the patient has received treatment. Previous Exams: Region Exam Age BMD T-score BMD Change BMD Change Date g/cm2 vs Baseline vs Previous Total Hip(Left) 07/25/2023 72 0.895 -0.4 0.039 (4.6%)# 0.039 (4.6%)# 08/08/2020 69 0.855 -0.7 Total Hip(Right) 07/25/2023 72 0.908 -0.3 -0.007 (-0.7%) -0.007 (-0.7%) 08/08/2020 69 0.914 -0.2 *Denotes significance at 95% confidence level, LSC for Total Hip = 0.027 g/cm2 # Denotes dissimilar scan types or analysis methods Clinical Information Provided by Patient: Has used the following medications: Vitamin D Has the following medical conditions: Asthma or Emphysema, Inflammatory bowel diseases, Hysterectomy Patient maximum height was 62 Menopause Age: 55 No regular weight bearing exercise Drinks caffeinated beverages Onset of menses at age 13 Number of children 2 Impression: The patient has low bone mass, based on the Total Spine T-score. The patient has an estimated ten-year risk of hip fracture of 1.7% and an estimated ten-year risk of major fracture of 9.8%, based on the WHO FRAX algorithm. No significant bone loss was observed. Discussion: BONE DENSITY IS LOW AT ONE OR MORE SKELETAL SITES. This patient's lowest T-score is low at one or more skeletal sites. It meets the World Health Organization's
== END 2023-07-25 10:41 | disposition home or self-care (01) ==
PROVIDERS: PCP Family Medicine; Visit Provider Family Medicine
DX: Z78.0 Asymptomatic menopausal state (principal); M85.89 Other specified disorders of bone density and structure, multiple sites
CPT/HCPCS: 77080

== ENCOUNTER 2023-08-20 09:30 | Outpatient (RCR) | payer MEDICARE, SELFPAY ==
--- NOTE | 2023-06-29 09:00 | OTOPEVAL1 ---
Assessment and note entered by Harrison Fuller, PATRIC/Umberto, CHT Evaluation Information Assessment Status Evaluation Diagnosis Pain in left thumb Subjective Information Patient reports onset of left thumb pain about a month ago. 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 Having difficulties with chopping/using a knife and using scissors. She has tried heat and ice with no relief. Patient reports she gets woken up at night from the pain. Reported Pain Level Pain Score 2: Self Report; Does get up to 10/10 at times Assessment OT Clinical Summary Patient referred to outpatient hand therapy with left thumb pain. Signs and symptoms are consistent with OA. Educated on inflammation reduction - immobilization, ROM, distraction, 1st web space stretching, and use of modalities. She reports excellent understanding of all materials. Plan to have her complete her home program x3 weeks and follow up for reassessment. Skilled OT indicated to facilitate reduced pain and improved functional use of her left hand. Plan of Care Interventions Therapeutic Exercise,Manual Therapy,Therapeutic Activities,Hot Pack/Cold Pack,Paraffin OT Services Indicated Yes Treatment Frequency and Plan to have her complete her home program x3 Duration weeks and follow up for reassessment. These treatments will address the objective and functional deficits as defined above. The patient will be advanced safely and appropriately in order for the patient to progress towards his/her prior level of function. Additional exercises will be introduced and as well as a comprehensive home exercise program upon discharge, if needed, ?to ensure carryover of functional gains achieved in the clinic. This treatment plan has been reviewed and agreement upon by the patient.
--- NOTE | 2023-06-29 09:01 | OPREHPOC ---
Outpatient Therapy Plan of Care This is a Multidisciplinary Plan of Care that may contain components documented by all disciplines (PT, OT, and ST.) OT Problem 1 OT Problem #1 Knowledge Deficit OT Goal 1 Goal 1. Patient to be independent with all materials. Target Visit 2 OT Problem 2 OT Problem #2 Pain OT Goal 1 Goal 1. Patient to report reduced pain in the left hand /thumb during ADLs. Target Visit 2 OT Problem 3 OT Problem #3 Impaired Strength OT Goal 1 Goal 1. Patient to be able to complete left director of government sales and pinch strengthening with at least yellow theraputty x5 minutes wihtout reports of pain. Target Visit 2
--- NOTE | 2023-07-22 09:11 | OTOPPROG ---
Assessment and note entered by Harrison Fuller, REDDR/Umberto, CHT Evaluation Information Diagnosis Pain in left thumb Subjective Information Patient reports onset of left thumb pain about a month ago. 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 Having difficulties with chopping/using a knife and using scissors. She has tried heat and ice with no relief. Patient reports she gets woken up at night from the pain. Assessment OT Clinical Summary Patient referred to outpatient hand therapy with left thumb pain. Signs and symptoms are consistent with OA. She has trialed a period of immobilization, ROM, and stretching. This provided minimal pain relief, but she does have improved ROM of the thumb. Plan to have patient continue therapy for use of modalities, manual therapy, and HEP education/progression. Plan of Care Interventions Therapeutic Exercise,Manual Therapy,Therapeutic Activities,Hot Pack/Cold Pack,Paraffin OT Services Indicated Yes Treatment Frequency and 2x/week for 3 weeks Duration These treatments will address the objective and functional deficits as defined above. The patient will be advanced safely and appropriately in order for the patient to progress towards his/her prior level of function. Additional exercises will be introduced and as well as a comprehensive home exercise program upon discharge, if needed, ?to ensure carryover of functional gains achieved in the clinic. This treatment plan has been reviewed and agreement upon by the patient.
--- NOTE | 2023-08-20 10:00 | OTOPDC ---
Assessment and note entered by Harrison Fuller, OTR/Umberto, T Discharge Summary 08/20/23 Diagnosis Pain in left thumb Subjective Information Patient reports progress since working with therapy, stating the pain is more controlled . Reports she has been wearing her thumb brace to sleep in and since then she doesn't wake up from pain in the middle of the night. She states she uses her hand carefully due to having residual pain with grasping items, such as a cup. ROM of the wrist/hand/thumb is WFL and remained unchanged since the start of care. She improved to being able to tolerate light strengthening of the wrist and hand. She was unable to tolerate reel winder/ pinch strength assessments at the start of care due to her pain, but was able to reel winder and pinch the tools today with little to no pain. Overall reel winder and pinch strengths are weak: (L) reel winder 34 lbs ., norm 45 lbs. (L) lateral pinch 3 lbs., norm 10 lbs. (L) palmar pinch 0 lbs., norm 9 lbs. Reported Pain Level Pain Score 0: Self Report Additional Pain Score Comments No pain at rest. Reports at worst it will get up to 4/10. A month ago her pain was still getting up to 10/10 at times. Assessment OT Clinical Summary Patient referred to outpatient hand therapy with left thumb pain. Signs and symptoms are consistent with OA. Therapy has been focusing on reducing and managing pain and restoring functional strength. She has made good progress this past month, reporting no pain with ROM and is able to use her hand for light tasks. She continues to have residual weakness as well as pain with any heavier griping or lifting. She is wearing a thumb spica brace to sleep at night and PRN during the day. She has found that kinesiotape over the CMC area has been helpful also. Plan - discharge today with patient to continue to work on her HEP to build strength around the CMC joint. At this time she is independent with all materials and is ready for discharge.
== END 2023-08-20 10:28 | disposition home or self-care (01) ==
LOC: ANHOT 09:30
PROVIDERS: PCP Family Medicine; Visit Provider Family Medicine
DX: M79.645 Pain in left finger(s) (principal)
CPT/HCPCS: 97018; 97035; 97110; 97140; 97165

== ENCOUNTER 2023-10-07 10:34 | Outpatient (CLI) | payer MEDICARE, SELFPAY ==
--- NOTE | ~2023-10-07 | XR_ITS ---
XR chest 2V DATE: 10/07/2023 10:58 INDICATION: Chest tightness for 2 weeks. Asthma. TECHNIQUE: 2 views, PA and lateral projections COMPARISON: 09/28/2020 CT chest 10/12/2019 2 view chest FINDINGS: Normal heart size. Aortic arch calcification, mild aortic unfolding. No hilar or mediastina l enlargement. No pulmonary infiltrate or consolidation, pleural effusion or pulmonary vascular congestion or pneumo thorax. Diffuse osteopenia. There is dextroscoliosis and degenerative spurring of the thoracic spine. IMPRESSION: No active cardiopulmonary disease Reviewed, dictated and finalized at location B. TIONS HANDLER
== END 2023-10-07 10:35 | disposition home or self-care (01) ==
PROVIDERS: PCP Family Medicine; Visit Provider Family Medicine
DX: J45.909 Unspecified asthma, uncomplicated (principal)
CPT/HCPCS: 71046

== ENCOUNTER 2023-10-13 16:32 | Outpatient (CLI) | payer MEDICARE, SELFPAY ==
--- NOTE | ~2023-10-13 | US_ITS ---
EXAMINATION: US renal BI DATE: 10/13/2023 17:58 INDICATION: N28.1 - Cyst of kidney, acquired TECHNIQUE: Multiple grayscale and Doppler ultrasound images of the kidneys were obtained. COMPARISON: 05/14/2020. FINDINGS: The right kidney measures 11.4 x 4.6 x 5.5 cm. The left kidney measures 11.5 x 5.2 x 5.2 cm. The kidn eys demonstrate normal parenchymal echogenicity. Right mid inferior pole cortex hyperechoic mass delma uring up to 3.5 cm. Parapelvic cyst/cysts on the left. There is no hydronephrosis. Ureteral jets not visualized during the exam. Post void residual of 15.9 mL. IMPRESSION: Possible solid right renal mass. Recommend CT or MRI of the kidneys without and with contrast for fur ther evaluation. 15.9 mL post void residual. Reviewed, dictated and finalized at location K. E INSTALLER REPAIRER HELPER IMPRESSION: Possible solid right renal mass. Recommend CT or MRI of the kidneys without and with contrast for further evaluation. 15.9 mL post void residual.
== END 2023-10-13 16:33 | disposition home or self-care (01) ==
PROVIDERS: PCP Family Medicine; Visit Provider Family Medicine
DX: N28.1 Cyst of kidney, acquired (principal)
CPT/HCPCS: 76775

== ENCOUNTER 2023-10-28 12:47 | Outpatient (CLI) | payer MEDICARE, SELFPAY ==
--- NOTE | ~2023-10-28 | MR_ITS ---
EXAMINATION: MR renal wo/w con DATE: 10/28/2023 13:44 INDICATION: Enlarging right renal mass TECHNIQUE: Magnetic resonance imaging (MRI) of the abdomen was performed without and with 19 mL Multi leela intravenous contrast. Sequences included coronal T2-weighted SS-FSE, coronal and axial FS 2D-F IESTA, axial STIR FSE, axial T2-weighted SS-FSE, axial T2-weighted FS SS-FSE, axial diffusion-weighte d SE, axial dual-echo T1-weighted FSPGR, and axial and coronal T1-weighted LAVA. Postcontrast axial T 1-weighted LAVA images were obtained in a time course. Postcontrast coronal T1-weighted LAVA images w ere obtained. COMPARISON: Ultrasound dated 10/13/[address] dated 05/14/2020 FINDINGS: Heart size is normal. No pericardial or pleural effusion. Small sliding-type hiatal hernia. Status po st cholecystectomy. Liver, spleen and bilateral adrenal glands are normal. There is fatty infiltratio n of the pancreas. 8 mm T1 hyperintense, T2 hypointense nonenhancing exophytic cyst at the lower pole of the right kidney. T2 hyperintense nonenhancing bilateral parapelvic cysts measuring up to 6 mm at the lower pole of the right kidney and with to narrow elongated parapelvic cysts at the lower pole t he left kidney measuring 3.1 cm and 2.3 cm in maximal length. No solid enhancing renal masses identif ied. The suggestion of a mass on the prior ultrasound likely represents a column of Barron. There are few scattered colonic diverticula. Visualized bowels are otherwise unremarkable. No pathologically e nlarged abdominal or upper pelvic lymphadenopathy. Mild lumbar levocurvature with mild to moderate sp ondylosis. No evident pathologic marrow replacing process. IMPRESSION: 1. Bilateral renal cysts. No enhancing renal masses identified. Appearance on prior ultrasound likely artifactual masslike appearance of a column of Barron. Reviewed, dictated and finalized at location A. H PRESS OPERATOR HELPER IMPRESSION: 1. Bilateral renal cysts. No enhancing renal masses identified. Appearance on p rior ultrasound likely artifactual masslike appearance of a column of Barron.
== END 2023-10-28 12:48 | disposition home or self-care (01) ==
PROVIDERS: PCP Family Medicine; Visit Provider Family Medicine
DX: N28.89 Other specified disorders of kidney and ureter (principal)
CPT/HCPCS: 74183; A9577

== ENCOUNTER 2023-12-08 07:47 | Outpatient (CLI) | payer MEDICARE, SELFPAY ==
--- NOTE | 2023-12-09 12:44 | WPDPFTINT ---
PFT Procedure Performed PFT Procedure Performed Spirometry with Pre/Post Bronchodilator Plethysmography (Lung Vol) Diffusing Cap (DLCO) Flow Vol Loop PFT Interpretation Lung volumes were measured with the body plethysmography method. Lung volumes are unremarkable. Spirometry showed normal expiratory flow rates and a normal FEV1 to FVC ratio of 78%. Following administration of a bronchodilator there was significant increase in the forced vital capacity. Lung diffusion capacity is within the normal range at 98% predicted. Impression: Spirometry, lung volumes, and lung diffusion capacity all within the normal range.
== END 2023-12-08 07:48 | disposition home or self-care (01) ==
LOC: ANHPFT 07:49
PROVIDERS: PCP Family Medicine; Visit Provider Nurse Practitioner Family
DX: J45.909 Unspecified asthma, uncomplicated (principal); R06.02 Shortness of breath
CPT/HCPCS: 94060; 94726; 94729

== ENCOUNTER 2024-01-07 12:44 | Outpatient (CLI) | payer MEDICARE, SELFPAY ==
--- NOTE | ~2024-01-07 | US_ITS ---
EXAMINATION: US venous doppler [facility] DATE: 01/07/2024 13:52 INDICATION: Chest pain. Lower limb pain. TECHNIQUE: Grayscale ultrasound images without and with compression and Doppler ultrasound images of the bilateral lower extremity veins were obtained. COMPARISON: Ultrasound 04/29/21 FINDINGS: The visualized portions of right common femoral vein, profunda (deep) femoral vein, femoral vein, pop liteal vein, peroneal veins, posterior tibial veins, and greater saphenous vein outflow are patent. The visualized portions of left common femoral vein, profunda femoral vein, femoral vein, popliteal v ein, peroneal veins, posterior tibial veins, and greater saphenous vein outflow are patent. IMPRESSION: 1. No deep venous thrombosis. Reviewed, dictated and finalized at location A. N MILL PRODUCTS INSPECTOR
== END 2024-01-07 12:45 | disposition home or self-care (01) ==
PROVIDERS: PCP Family Medicine; Visit Provider Nurse Practitioner Family
DX: R25.2 Cramp and spasm (principal); R07.9 Chest pain, unspecified
CPT/HCPCS: 93970

== ENCOUNTER 2024-02-22 07:58 | Outpatient (CLI) | payer MEDICARE, SELFPAY ==
--- NOTE | ~2024-02-22 | MM_ITS ---
EXAMINATION: MM screening brynn BI w igl HISTORY: Screening TECHNIQUE: Craniocaudal and mediolateral oblique 3-D tomosynthesis images were obtained and synthetic 2-D images were generated. CAD analysis was submitted and interpreted. COMPARISON: Comparison to multiple prior studies sequentially, with oldest reviewed study dated 08/08. BREAST PARENCHYMAL COMPOSITION: Not dense: There are scattered areas of fibroglandular density. FINDINGS: There is no evidence of suspicious mass, calcification, or architectural distortion to sugg est malignancy in either breast. There has been no suspicious interval change. IMPRESSION: 1. No mammographic evidence of malignancy. 2. Recommend routine screening mammography in one year. BI-RADS Category 1: Negative Reviewed, dictated and finalized at location B.
== END 2024-02-22 07:59 | disposition home or self-care (01) ==
LOC: ANHIMG 07:59
PROVIDERS: PCP Family Medicine; Visit Provider Family Medicine
DX: Z12.31 Encounter for screening mammogram for malignant neoplasm of breast (principal)
CPT/HCPCS: 77063; 77067

== ENCOUNTER 2024-08-16 07:56 | Outpatient (CLI) | payer MEDICARE, SELFPAY ==
--- NOTE | ~2024-08-16 | XR_ITS ---
EXAMINATION: XR lumbar spine 2-3V DATE: 08/16/2024 08:17 INDICATION: Back pain rating down the right leg. TECHNIQUE: 3 views of lumbar spine were obtained. COMPARISON: Lumbar spine radiographs 04/01/2011 FINDINGS: There is 8 degrees levocurvature of thoracic lumbar spine. There is mild chronic anterior w edging of L1 vertebral body. There is mildly decreased disc height at L1-L2, L2-L3, L3-L4, and L5-S1. There is multilevel facet joint osteoarthritis, severe in lower lumbar spine. Surgical clips in the right upper quadrant are likely from cholecystectomy. IMPRESSION: 1. Mild lumbar spondylosis. Reviewed, dictated and finalized at location A. IMPRESSION: 1. Mild lumbar spondylosis.
== END 2024-08-16 07:57 | disposition home or self-care (01) ==
PROVIDERS: PCP Family Medicine; Visit Provider Nurse Practitioner Family
DX: M47.816 Spondylosis without myelopathy or radiculopathy, lumbar region (principal); M54.30 Sciatica, unspecified side
CPT/HCPCS: 72100

== ENCOUNTER 2024-09-30 08:01 | Outpatient (CLI) | payer MEDICARE, SELFPAY ==
--- NOTE | ~2024-09-30 | XR_ITS ---
Left Knee Technique: AP, lateral, and sunrise views were obtained. Clinical History: Osteoarthritis Findings: No fracture or dislocation is seen. There is probable mild medial compartment narrowing. Th ere is moderate tricompartmental osteophyte formation.. Soft tissues are unremarkable. No joint effus ion is seen. Impression: Moderate to advanced tricompartmental degenerative change, as detailed above. Reviewed, dictated and finalized at location M. RIAL DISPOSITION INSPECTOR Impression: Moderate to advanced tricompartmental degenerative change, as detailed above.
--- NOTE | ~2024-09-30 | XR_ITS ---
XR knee RT min 4V 09/30/2024 08:34 Indication: Right knee pain Procedure: 4 views right knee Comparison: No prior studies for comparison. Findings: There is moderate-severe tricompartment osteoarthritis. Small joint effusion. No fracture o r traumatic malalignment. Impression: 1: Moderate-severe tricompartment osteoarthritis of the right knee. Reviewed, dictated and finalized at location B. RIOR MECHANIC Impression: 1: Moderate-severe tricompartment osteoarthritis of the right knee.
== END 2024-09-30 08:02 | disposition home or self-care (01) ==
PROVIDERS: PCP Family Medicine; Visit Provider Orthopaedic Surgery
DX: M17.0 Bilateral primary osteoarthritis of knee (principal)
CPT/HCPCS: 73564

== ENCOUNTER 2024-11-07 12:54 | Outpatient (CLI) | payer MEDICARE, SELFPAY ==
--- NOTE | 2024-11-07 13:03 | ECG_ITS ---
Test Date: 2024-11-07 13:24:42 Measurements Intervals Gates Rate: 81 P: 24 OK: 142 QRS: -22 QRSD: 94 T: 40 QT: 349 QTc: 407 Interpretive Statements SINUS RHYTHM BORDERLINE LEFT AXIS DEVIATION [QRS AXIS < -20] LOW QRS VOLTAGE IN PRECORDIAL LEADS [QRS DEFLECTION < 1.0 mV IN CHEST LEADS] No previous ECG available for comparison Electronically Signed On 11-07-2024 14:27:22 CAR INSTALLATIONS SUPERVISOR by Getachew Finley M.D.
== END 2024-11-07 12:55 | disposition home or self-care (01) ==
PROVIDERS: PCP Family Medicine; Visit Provider Orthopaedic Surgery
DX: R94.31 Abnormal electrocardiogram [ECG] [EKG] (principal); R07.9 Chest pain, unspecified
CPT/HCPCS: 93005

== ENCOUNTER 2024-12-20 12:27 | Outpatient (CLI) | payer MEDICARE, SELFPAY ==
--- NOTE | ~2024-12-20 | XR_ITS ---
XR knee RT min 4V 12/20/2024 12:49 Indication: Osteoarthritis of the knees Procedure: 4 views right knee Comparison: 09/30/2024 Findings: There is severe tricompartment osteoarthritis. No significant joint effusion. No fracture o r traumatic malalignment. Impression: 1: Severe tricompartment osteoarthritis, most advanced in the medial compartment. Reviewed, dictated and finalized at location A. STOCK BRANDS INSPECTOR Impression: 1: Severe tricompartment osteoarthritis, most advanced in the medial compartmen t.
--- NOTE | ~2024-12-20 | XR_ITS ---
EXAMINATION: XR knee LT min 4V DATE: 12/20/2024 12:49 INDICATION: Bilateral primary osteoarthritis of knee. TECHNIQUE: 4 views of left knee including weight-bearing views were obtained. COMPARISON: Left knee radiographs 09/30/2024 FINDINGS: There is varus attenuation the knee. No fracture. There is severe osteoarthritis of medial compartment and mild osteoarthritis of lateral and patellofemoral compartments. No knee joint effusio n. IMPRESSION: 1. Severe left knee osteoarthritis. Reviewed, dictated and finalized at location A. ESCENT COUNSELOR
--- OUTSIDE RECORDS SUMMARY | 2024-12-20 13:06 | XMS_ITS | Clinical Summary ---
Author Organization [facility] Address [address] [place] [address] Care Team Providers Care Velvet Cutter Name Role Phone Norman Medina MD Primary Care Provider [phone] Allergies No known active allergies Medications losartan (COZAAR) 50 mg tablet Take 1 tablet (50 mg total) by mouth daily Active pantoprazole DR (PROTONIX) 40 mg EC tablet Take 1 tablet (40 mg total) by mouth daily Active calcium carbonate-vitam in D3 (CALTRATE 600 + D) 1500 mg (600 mg elemental) -400 units per tablet Take 1 tablet by mouth daily Active fluticasone-ume clidin-vilanter (Trelegy Ellipta) 100-62.5-25 mcg inhaler Inhale 1 puff daily Active colesevelam (WELCHOL) 625 mg tablet Take 3 tablets (1,875 mg total) by mouth 2 (two) times a day with meals Active atorvastatin (LIPITOR) 40 mg tablet Take 1 tablet (40 mg total) by mouth daily Active Active Problems Problem Noted Date Diagnosed Date Posterior knee pain, right 07/27/2024 Assessment & Plan (07/28/2024 3:42 PM CDT): Impression: Patient complains of pain to the posterior knee that worsens with pressure. She denies any symptoms of claudication, ischemic rest pain or ulcerations to her lower extremity. Patient intermittently uses compression stockings. Patient has palpable distal pulses to bilateral lower extremities. No open ulcerations, palpable masses, or varicosities are noted on exam. Mild edema is noted to bilateral lower extremities. Plan: Recommend daily compression stockings and elevation to assist with edema control. -pain to the posterior knee with pressure is unlikely vascular in nature. Patient has visits with an orthopedic surgeon for bilateral knee pain and receiving injections. Recommend patient to notify orthopedic surgeon of pain to posterior knee for further evaluation. -patient to follow-up as needed. Primary hypertension 07/27/2024 Assessment & Plan (07/28/2024 3:36 PM CDT): Impression: Chronic and stable. Plan: Continue losartan Mixed hyperlipidemia 07/27/2024 Assessment & Plan (07/28/2024 3:36 PM CDT): Impression: Chronic and stable. 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 Gender Identity Not on file Sexual Orientation Not on file Obstetrics History Last Filed Vital Signs Vital Sign Reading Time Taken Comments Blood Pressure 137/82 07/27/2024 8:52 AM CDT Pulse 81 07/27/2024 8:52 AM CDT Temperature - - Respiratory Rate - - Oxygen Saturation 97% 07/27/2024 8:52 AM CDT Inhaled Oxygen Concentration - - Weight - - Height - - Body Mass Index - - Plan of Treatment Health Maintenance Due Date Last Done Comments Breast Cancer Screening-Mammogram 1950 Colon Cancer Screening-Colonoscopy 1950 Depression Screening 1950 Fall Risk Assessment 1950 Hepatitis C Screening 1950 Osteoporosis Screening-Bone Density Scan 1950 DTaP/Tdap/Td Vaccine (1 - Tdap) 1961 Hepatitis B Screening 1968 Well Visit 65+ 2015 Zoster Vaccine (2 of 2) 05/11/2024 03/16/2024 Covid-19 Vaccine (6 - 2023-2 5 season) 2024 08/18/2023, 08/04/2022, 08/30/2021, Additional history exists Influenza Vaccine (#1) 2024 , 07/29/2022, 08/30/2021, Additional history exists Pneumococcal vaccine 65+ Completed 12/09/2022, 02/1 02/2018 Insurance [employer] MEDICARE Care Teams Velvet Cutter Relationship Specialty Start Date End Date Norman Medina MD PCP - General Family Practice 06/21/24
--- OUTSIDE RECORDS SUMMARY | 2024-12-20 13:06 | XMS_ITS | Referral Summary ---
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
--- OUTSIDE RECORDS SUMMARY | 2024-12-20 13:06 | XMS_ITS | Continuity of Care Document ---
Author Organization [facility] Address [address] [place] [address] [address] [place] [address] Phone Care Team Providers Care Laborer Pole Crew Name Role Phone Maxx Barth Unavailable Unavailable Advance Directives Directive Yes / No Effective Date File Name No Information Encounters Encounter Description Practice Location Reason(s) For Visit Diagnoses Date Provider Providers Copied on Encounter Formerly [facility], [id number] [place] [address] [address], [place], [place], [id number], [place] tel:[phone] [facility] [place] No Information 8[address] Lilly. [address] [place] [address] , [address], [place], [address], [place]. tel:[phone] Referring Provider: Maxx Leiva [address] [place] [address] [address], [place], [address]. tel:[phone] Family History Family Member Type Diagnosis Age At Onset No Information Payers Payer name Insurance type Covered libertarian ID Authoriza tion(s) No Information Social History Type Description Quantity Date Captured Comments Sex Female Smoking Status No Information Chief Complaint And Reason For Visit No Information Reason For Referral Reason For Referral No Information History Of Present Illness Encounter Date Complaint History Of Prese nt Illness No Information Functional Status Date Functional Assessmen t No Information Instructions Date Instruction Additional Infor mation No Information Assessments Type Assessment Date No Information Patient Care Teams Name Effective Dates (start - stop) Status Members No Information
--- OUTSIDE RECORDS SUMMARY | 2024-12-20 13:06 | XMS_ITS | Clinical Summary ---
Author Organization [facility] Address [address] [place] [address]. [place], [place] [id number] [place] [address] Care Team Providers Care Rooming House Inspector Name Role Phone Norman Medina MD Primary Care Provider [phone] Social History Tobacco Use Types Packs/Day Years Used Date Smoking Tobacco: Never Assessed Comments Unknown Sex and Gender Information Value Date Recorded Sex Assigned at Not on file Legal Sex Female 1:34 PM CDT Gender Identity Not on file Sexual Orientation Not on file Plan of Treatment Health Maintenance Due Date Last Done Comments Colorectal Cancer Screening Colonoscopy (10 Years) 1950 Hepatitis C 1968 DTaP, Tdap and Td Vaccines ( 1 - Tdap) 1969 Mammogram Screening 1990 Zoster Vaccines (1 of 2) 2000 Annual Medicare Wellness Visit 2015 Dexa Scan (General) 2015 Pneumococcal Vaccine: 65+ Ye ars (1 of 1 - PCV) 2015 COVID-19 Vaccine ( - 2023-2 5 season) 2024 Influenza Adult (#1) 2024 RSV Immunization or 60+ Years (1 - 1-dose 75+ series) 2025 Meningococcal B Vaccine Aged Out No l onger eligible based on patient's age to complete this topic Meningococcal Vaccine Aged Out No alex juliana eligible based on patient's age to complete this topic RSV Immunizations Under 20 Months Aged Out No longer eligible based on patient's age to complete this topic Insurance AETNA Care Teams Rooming House Inspector Relationship Specialty Start Date End Date Norman Medina MD [address] [place] [id number] PCP - General FAMILY PRACTICE 03/01/24
== END 2024-12-20 12:28 | disposition home or self-care (01) ==
PROVIDERS: PCP Family Medicine; Visit Provider Orthopaedic Surgery
DX: M17.0 Bilateral primary osteoarthritis of knee (principal)
CPT/HCPCS: 73564

== ENCOUNTER 2025-02-28 | Day surgery (SDC) | payer MEDICARE, SELFPAY ==
[2025-02-21 13:24] VITALS: BMI 37.0
--- OUTSIDE RECORDS SUMMARY | 2025-02-28 00:02 | XMS_ITS | Clinical Summary ---
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
--- OUTSIDE RECORDS SUMMARY | 2025-02-28 00:02 | XMS_ITS | Continuity of Care Document ---
Author Organization [facility] Address [address] [place] [address] [address] [place] [address] Phone Care Team Providers Care Metal Drill Operator Name Role Phone Maxx Barth Unavailable Unavailable Advance Directives Directive Yes / No Effective Date File Name No Information Encounters Encounter Description Practice Location Reason(s) For Visit Diagnoses Date Provider Providers Copied on Encounter [facility], [id number] [place] [address] [address], [place], [place], [id number], [place] tel:[phone] [facility] [place] No Information [address] [place] [address] , [address], [place], [address], [place]. tel:[phone] Referring Provider: Maxx Leiva [address] [place] [address] [address], [place], [address]. tel:[phone] Family History Family Member Type Diagnosis Age At Onset No Information Payers Payer name Insurance type Covered republican ID Authoriza tion(s) No Information Social History [...]
--- OUTSIDE RECORDS SUMMARY | 2025-02-28 00:02 | XMS_ITS | Referral Summary ---
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
[2025-02-28 07:02] VITALS: BP 139/76; PULSE 81; RESP 16; TEMP 36.3; O2SAT 99; BMI 37.8
[2025-02-28] MEDS: LACTATED RINGERS 1,000 ML 150 ML IV CONT (07:29)
--- NOTE | 2025-02-28 07:57 | P.PNAN_ITS ---
Anes - Initial Pre Proc Eval Procedure: Operation Date: 02/28/25 08:15 Proposed Procedures p Screening Colonoscopy - Fabian Jones MD Date/Time: 02/28/25 07:57 Surgeon: Fabian Jones MD Pre Op Diagnosis: screening colon Patient Data Age: 74 Gender: F Height: 1.57 m Weight: 93.8 kg Last Vital Signs Temp 36.3 C L 02/28/25 07:02 Pulse 81 02/28/25 07:02 Resp 16 02/28/25 07:02 BP 139/76 02/28/25 07:02 Pulse Ox 99 02/28/25 07:02 O2 Del Method Room Air 02/28/25 07:02 Allergies Allergy/AdvReac Type Severity Reaction Status Date / Time No Known Allergies Allergy Verified 02/28/25 07:11 Home Medications ?Medication ?Instructions ?Recorded ?Confirmed ?Type cholecalciferol (vitamin D3) 125 250 mcg (2 x 125 mcg (5,000 unit)) 09/26/20 02/28/25 Rx mcg (5,000 unit) capsule PO DAILY #30 caps cyclobenzaprine 5 mg tablet 5 mg PO TID PRN muscle spasm #30 03/21/24 02/21/25 Rx tabs solifenacin 10 mg tablet See Rx Instructions .Route 05/25/24 02/21/25 Rx .COMPLEX #90 tabs diphenoxylate-atropine 2.5 1 tablet PO DAILY PRN diarrhea #30 09/21/24 02/21/25 Rx mg-0.025 mg tablet tabs fluticasone propionate 50 See Rx Instructions .Route 09/21/24 02/28/25 Rx mcg/actuation nasal .COMPLEX #48 mL spray,suspension losartan 50 mg tablet See Rx Instructions .Route 09/21/24 02/28/25 Rx .COMPLEX #90 tabs pantoprazole 40 mg tablet,delayed See Rx Instructions .Route 09/21/24 02/28/25 Rx release .COMPLEX #90 tabs pravastatin 80 mg tablet See Rx Instructions .Route 12/14/24 02/28/25 Rx .COMPLEX #90 tabs vibegron 75 mg tablet (Gemtesa) See Rx Instructions .Route 12/14/24 02/28/25 Rx .COMPLEX #90 tabs fluticasone fur. 100 mcg-umeclid See Rx Instructions .Route 01/03/25 02/28/25 Rx 62.5 mcg-vilant 25 mcg .COMPLEX #60 ea inhalat.powder (Trelegy Ellipta) gabapentin 300 mg capsule See Rx Instructions .Route .COMPLEX 02/09/25 02/28/25 History tirzepatide (weight loss) 10 10 mg (0.5 mL) subcut WEEKLY #2 mL 02/13/25 02/28/25 Rx mg/0.5 mL subcutaneous pen injector (Zepbound) albuterol 90 mcg-budesonide 80 2 inh inhalation ONCE PRN 02/21/25 02/21/25 History mcg/actuation HFA aerosol inhaler shortness of breath (Airsupra) albuterol sulfate 2.5 mg/3 mL 2.5 mg inhalation Q6H PRN 02/21/25 02/21/25 History (0.083 %) solution for nebulization shortness of breath or wheezing colesevelam 3.75 gram oral powder 3,750 mg PO DAILY PRN diarrhea 02/21/25 02/21/25 History packet meloxicam 15 mg tablet 15 mg PO DAILY PRN Arthritis 02/21/25 02/21/25 History prednisone 20 mg tablet 40 mg PO DAILY PRN Asthma 02/21/25 02/21/25 History mecobalamin 2 mg-levomefolate calc 1 cap PO DAILY #90 caps 02/22/25 02/28/25 Rx 3 mg-pyridoxal phos 35 mg capsule (Metanx FC) Patient hx anesthesia problems: none Family hx anesthesia problems: none Results Review: All pre-operative results and documents have been reviewed as part of the pre- operative evaluation. [facility] Past Medical History Medical History Obesity due to excess calories History of stress test (~2020) Mass of right kidney Chest pain Overactive bladder Screening for breast cancer Osteopenia Left lower quadrant pain Urinary urgency Menopausal osteoporosis Cough Dyslipidemia (high LDL; low HDL) Gastro-esophageal reflux disease without esophagitis Mild intermittent asthma, uncomplicated Hypovitaminosis D Surgical History Surgical History History of tooth extraction History of breast biopsy x3 History of appendectomy History of cholecystectomy H/O: hysterectomy History of 2 sections Family History Family History Mother Family history of obesity Hypertension Family history of atrial fibrillation Family history of congestive heart failure Father Hypertension Cerebrovascular accident Patient's father is Family history of congestive heart failure Sibling History of skin cancer Social History Social History Smoking packs per day: 2 Smoking cigarettes per day: 40.0 Years smoked: 12 Smoking pack-years: 24.00 Smoking status: Former smoker Tobacco type: cigarettes Second hand tobacco smoke exposure: Yes Smoking end date: 11/23/88 Alcohol intake: current Drinks per week: 4 Substance use: never Substance use type: does not use Lack of Transportation: No Lack of Food: Never True Current Housing: I Have Housing Concerned About Future Housing: No Difficulty Paying Gas/Electric Bills: No Difficulty Paying for Meds: No Currently Unemployed: No Education: Decline to Answer Difficulty w/ Childcare or Family Care: No Living arrangements: with family Gender identity (if verbalized by the patient): Female Spiritual care concerns: No Anes - Eval Final PreProcedure Day of Procedure 02/28/25 07:57 Patient weight: obese Heart: regular rate and rhythm Lungs: clear to auscultation Airway: Mallampati scale class II Neurological: alert and oriented Last oral intake: >/= 8 hours ASA classification: III Emergent: no Anesthetic plan: proceed Anesthesia type and monitoring: general GIVS and standard monitoring Results Review: All pre-operative results and documents have been reviewed as part of the pre- operative evaluation. Informed Consent: The patient's anesthetic plan and its attendant risks and benefits were discussed with the patient/family/POA. Questions were solicited and answers provided to the satisfaction of the patient/family/POA.
--- NOTE | 2025-02-28 08:07 | PM.IMHP ---
H&P: HPI History of Present Illness Date/Time: 02/28/25 08:07 Chief Complaint: Screening colonoscopy Narrative: This is the patient's 2nd colonoscopy, she had her last colonoscopy 14 years ago.. There are no GI symptoms and there is no family history of colorectal cancer. Review of Systems Review of Systems: All systems reviewed & are unremarkable except as noted in HPI and below PMFSH Past Medical History Medical History Obesity due to excess calories History of stress test (~2020) Mass of right kidney Chest pain Overactive bladder Screening for breast cancer Osteopenia Left lower quadrant pain Urinary urgency Menopausal osteoporosis Cough Dyslipidemia (high LDL; low HDL) Gastro-esophageal reflux disease without esophagitis Mild intermittent asthma, uncomplicated Hypovitaminosis D Surgical History Surgical History History of tooth extraction History of breast biopsy x3 History of appendectomy History of cholecystectomy H/O: hysterectomy History of 2 sections Family History Family History Mother Family history of obesity Hypertension Family history of atrial fibrillation Family history of congestive heart failure Father Hypertension Cerebrovascular accident Patient's father is Family history of congestive heart failure Sibling History of skin cancer Social History Social History Smoking packs per day: 2 Smoking cigarettes per day: 40.0 Years smoked: 12 Smoking pack-years: 24.00 Smoking status: Former smoker Tobacco type: cigarettes Second hand tobacco smoke exposure: Yes Smoking end date: 11/23/88 Alcohol intake: current Drinks per week: 4 Substance use: never Substance use type: does not use Lack of Transportation: No Lack of Food: Never True Current Housing: I Have Housing Concerned About Future Housing: No Difficulty Paying Gas/Electric Bills: No Difficulty Paying for Meds: No Currently Unemployed: No Education: Decline to Answer Difficulty w/ Childcare or Family Care: No Living arrangements: with family Gender identity (if verbalized by the patient): Female Spiritual care concerns: No Meds Home Medications and Allergies Home Medications ?Medication ?Instructions ?Recorded ?Confirmed ?Type cholecalciferol (vitamin D3) 125 250 mcg (2 x 125 mcg (5,000 unit)) 09/26/20 02/28/25 Rx mcg (5,000 unit) capsule PO DAILY #30 caps cyclobenzaprine 5 mg tablet 5 mg PO TID PRN muscle spasm #30 03/21/24 02/21/25 Rx tabs solifenacin 10 mg tablet See Rx Instructions .Route 05/25/24 02/21/25 Rx .COMPLEX #90 tabs diphenoxylate-atropine 2.5 1 tablet PO DAILY PRN diarrhea #30 09/21/24 02/21/25 Rx mg-0.025 mg tablet tabs fluticasone propionate 50 See Rx Instructions .Route 09/21/24 02/28/25 Rx mcg/actuation nasal .COMPLEX #48 mL spray,suspension losartan 50 mg tablet See Rx Instructions .Route 09/21/24 02/28/25 Rx .COMPLEX #90 tabs pantoprazole 40 mg tablet,delayed See Rx Instructions .Route 09/21/24 02/28/25 Rx release .COMPLEX #90 tabs pravastatin 80 mg tablet See Rx Instructions .Route 12/14/24 02/28/25 Rx .COMPLEX #90 tabs vibegron 75 mg tablet (Gemtesa) See Rx Instructions .Route 12/14/24 02/28/25 Rx .COMPLEX #90 tabs fluticasone fur. 100 mcg-umeclid See Rx Instructions .Route 01/03/25 02/28/25 Rx 62.5 mcg-vilant 25 mcg .COMPLEX #60 ea inhalat.powder (Trelegy Ellipta) gabapentin 300 mg capsule See Rx Instructions .Route .COMPLEX 02/09/25 02/28/25 History tirzepatide (weight loss) 10 10 mg (0.5 mL) subcut WEEKLY #2 mL 02/13/25 02/28/25 Rx mg/0.5 mL subcutaneous pen injector (Zepbound) albuterol 90 mcg-budesonide 80 2 inh inhalation ONCE PRN 02/21/25 02/21/25 History mcg/actuation HFA aerosol inhaler shortness of breath (Airsupra) albuterol sulfate 2.5 mg/3 mL 2.5 mg inhalation Q6H PRN 02/21/25 02/21/25 History (0.083 %) solution for nebulization shortness of breath or wheezing colesevelam 3.75 gram oral powder 3,750 mg PO DAILY PRN diarrhea 02/21/25 02/21/25 History packet meloxicam 15 mg tablet 15 mg PO DAILY PRN Arthritis 02/21/25 02/21/25 History prednisone 20 mg tablet 40 mg PO DAILY PRN Asthma 02/21/25 02/21/25 History mecobalamin 2 mg-levomefolate calc 1 cap PO DAILY #90 caps 02/22/25 02/28/25 Rx 3 mg-pyridoxal phos 35 mg capsule (Metanx FC) Allergies Allergy/AdvReac Type Severity Reaction Status Date / Time No Known Allergies Allergy Verified 02/28/25 07:11 Vital Signs Vital Signs - 24 hr 02/28/25 07:02 Temperature 97.4 F L Pulse Rate 81 Respiratory Rate 16 Blood Pressure 139/76 Pulse Oximetry 99 Oxygen Delivery Room Air Exam Const: General: cooperative and healthy appearing Resp: Effort & Inspection: normal respiratory effort and able to speak in complete sentences Auscultation: clear to auscultation bilaterally Cardio: Rate: regular rate Rhythm: regular rhythm GI: Inspection: normal to inspection GI Palp: No No hepatosplenomegaly present Auscultation: normal bowel sounds Rectal Exam: deferred Skin: General skin exam: normal color Psych: Appearance: grossly normal Mental Status: mental status grossly normal Assessment and Plan Assessment and plan (1) Colon cancer screening: Code(s): Z12.11 - Encounter for screening for malignant neoplasm of colon Status: Acute Assessment and Plan: The patient is deemed a good candidate for the procedure. Consent signed. Will proceed.
[2025-02-28 08:44] VITALS: BP 115/40; PULSE 80; RESP 19; O2SAT 99
[2025-02-28 08:54] VITALS: BP 104/53; PULSE 79; RESP 15; O2SAT 99
[2025-02-28 09:04] VITALS: BP 117/67; PULSE 71; RESP 17; O2SAT 99
== END 2025-02-28 09:19 | disposition home or self-care (01) ==
PROVIDERS: PCP Family Medicine; Referring Provider Family Medicine; Visit Provider Internal Medicine Gastroenterology
PROC: 0DJD8ZZ Inspection of Lower Intestinal Tract, Via Natural or Artificial Opening Endoscopic (ICD-10-PCS; CPT 45378; principal; 2025-02-28 08:15)
DX: Z12.11 Encounter for screening for malignant neoplasm of colon (principal); K63.5 Polyp of colon; K64.8 Other hemorrhoids; K57.30 Diverticulosis of large intestine without perforation or abscess without bleeding; E78.5 Hyperlipidemia, unspecified; K21.9 Gastro-esophageal reflux disease without esophagitis; J45.909 Unspecified asthma, uncomplicated; E55.9 Vitamin D deficiency, unspecified; N32.81 Overactive bladder; R39.15 Urgency of urination; M85.88 Other specified disorders of bone density and structure, other site; E66.9 Obesity, unspecified; Z68.37 Body mass index [BMI] 37.0-37.9, adult; Z79.51 Long term (current) use of inhaled steroids; Z79.85 Long-term (current) use of injectable non-insulin antidiabetic drugs; Z79.52 Long term (current) use of systemic steroids; Z98.890 Other specified postprocedural states; Z90.49 Acquired absence of other specified parts of digestive tract; Z87.891 Personal history of nicotine dependence; Z84.0 Family history of diseases of the skin and subcutaneous tissue; Z82.49 Family history of ischemic heart disease and other diseases of the circulatory system
CPT/HCPCS: 45385; 88305; J2003; J2704; J7120

== ENCOUNTER 2025-03-01 11:31 | Outpatient (CLI) | payer MEDICARE, SELFPAY ==
--- OUTSIDE RECORDS SUMMARY | 2025-03-01 13:15 | XMS_ITS | Referral Summary ---
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
--- OUTSIDE RECORDS SUMMARY | 2025-03-01 13:15 | XMS_ITS | Clinical Summary ---
Author Organization [facility] Address [address] [place] [address] Care Team Providers Care Cement Finisher Apprentice Name Role Phone Norman Medina MD Primary Care Provider [phone] Social History Tobacco Use Types Packs/Day Years [...] Vaccine ( - 2023-2 5 season) 2024 RSV Immunization or 60+ Years (1 [...] complete this topic Insurance [employer] Care Teams Cement Finisher Apprentice Relationship Specialty Start Date End Date Nroman Medina MD [address] [place] [address] PCP - General FAMILY PRACTICE 03/01/24
--- OUTSIDE RECORDS SUMMARY | 2025-03-01 13:15 | XMS_ITS | Clinical Summary ---
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
--- OUTSIDE RECORDS SUMMARY | 2025-03-01 13:15 | XMS_ITS | Continuity of Care Document ---
Author Organization [facility] Address [address] [place] [address] [address] [place] [address] Phone Care Team Providers Care Renewals Representative Name Role Phone Maxx Barth Unavailable Unavailable Advance Directives Directive Yes / No Effective Date File Name No Information Encounters Encounter Description Practice Location Reason(s) For Visit Diagnoses Date Provider Providers Copied on Encounter [facility], [id number] [place] [address] [address], [place], [place], [id number], [place] tel:[phone] [facility] [place] No Information [address] Lilly. [address] [place] [address] , [address], [place], [address], [place]. tel:[phone] Referring Provider: Maxx Leiva [address] [place] [address] [address], [place], [address]. tel:[phone] Family History Family Member Type Diagnosis Age [...]
[2025-03-01 15:12] LABS: Urine Cotinine NEGATIVE
[2025-03-01 16:10] LABS: MRSA (PCR) DETECTED (NOT DETECTE)
== END 2025-03-01 11:32 | disposition home or self-care (01) ==
LOC: ANHSURGERY 11:35
PROVIDERS: PCP Family Medicine; Visit Provider Orthopaedic Surgery
DX: Z01.812 Encounter for preprocedural laboratory examination (principal); M17.11 Unilateral primary osteoarthritis, right knee
CPT/HCPCS: 80307; 87641

== ENCOUNTER 2025-03-23 00:36 | Day surgery (SDC) | payer MEDICARE, SELFPAY ==
--- NOTE | 2025-03-01 11:56 | PC.NURSE ---
Report to the Outpatient Waiting Room, entrance under the green pavilion located off [facility], at time ___6:00AM____ on date ____03/23/25___. Planned Procedure Time: ____7:30AM____.? Time changes happen often and if your time is changed the preop area will call you the afternoon before. - You and your visitor will be asked to self-screen and do not enter if you have any COVID symptoms. Please call surgeon if you need to reschedule. - A mask is optional within the hospital at this time. Patients may have clear liquids (water, carbonated beverages, clear teas, apple juice) until 3 hours prior to surgery (4:30AM) with a maximum of 20 ounces. - No food from midnight until time of surgery and no smoking, or chewing tobacco (or any form of nicotine). No chewing gum, candy or mints. Take only the following medications with a SIP of water on the morning of surgery: __USE TRELEGY INHALER. MAY USE ALBUTEROL & AIRSUPRA INHALER AND ALBUTEROL NEBULIZER NEEDED.__TAKE GABAPENTIN ON MORNING OF SURGERY. TAKE PREDNISONE NEEDED FOR ASTHMA. TYLENOL W/ CODEINE NEEDED FOR PAIN. DO NOT STOP ANY OF YOUR OTHER PRESCRIPTION MEDICATIONS PRIOR TO SURGERY EXCEPT THE FOLLOWING Hold all vitamins and supplements for 3 days per anesthesiologist.HOLD ZEPBOUNDS 10 DAYS PRE-OP- LAST DOSE 03/12/25. Medications to discontinue per physician __HOLD ALL NSAIDS(MELOXICAM) AND VITAMINS/SUPPLEMENTS 7 DAYS PRE-OP PER DR MARQUEZ- LAST DOSE 03/15/25.___ Please no make-up, nail citizen of [place], hairspray, perfume, deodorant, or body powder the day of surgery.? No jewelry (including any body piercings) or valuables the day of surgery, leave them at home.? Please take a shower or bath the night before, or the morning of, surgery with an antibacterial soap.? Wear comfortable, loose fitting clothing.? - Jewelry must be removed prior to entering the operating room.? Rings and piercings that are not removed may be cut off. - The hospital will not accept responsibility for valuables.? - Please leave all valuables, including medications, at home the day of surgery. If you are going home after surgery, a licensed scoop driver must drive you home.? - NO public transportation without another adult if you receive anesthesia. - We recommend that an adult stay with you for 24 hours following discharge. - We also recommend that you do not drive, make important decision, drink alcoholic beverages, or take any drugs that were not prescribed by your health care provider for at least 24 hours after your discharge time. Follow any additional instructions given to you from your surgeon. Telephone instructions given to ____PATIENT and asked if any additional questions and then verbalized understanding. Patient advised to call surgeon office or pre surgery nurse liaison [phone] if any additional questions.
[2025-03-01 12:25] VITALS: BP 131/63; PULSE 66; RESP 16; TEMP 36.8; O2SAT 98; BMI 38.9
--- NOTE | 2025-03-22 14:43 | WPDANESEPPF ---
Anes - Initial Pre Proc Eval Procedure: Operation Date: 03/23/25 07:30 Proposed Procedures p Right Total Knee Arthroplasty - Hi Anderson MD Date/Time: 03/22/25 14:43 Surgeon: Hi Anderson MD Pre Op Diagnosis: primary OA right knee Patient Data Age: 74 Gender: F Height: 1.56 m Weight: 95 kg Last Vital Signs Temp 36.8 C 03/01/25 12:25 Pulse 66 03/01/25 12:25 Resp 16 03/01/25 12:25 BP 131/63 03/01/25 12:25 Pulse Ox 98 03/01/25 12:25 O2 Del Method Room Air 03/01/25 12:25 Allergies Allergy/AdvReac Type Severity Reaction Status Date / Time No Known Allergies Allergy Verified 03/01/25 12:06 Home Medications ?Medication ?Instructions ?Recorded ?Confirmed ?Type cholecalciferol (vitamin D3) 125 250 mcg (2 x 125 mcg (5,000 unit)) 09/26/20 03/02/25 Rx mcg (5,000 unit) capsule PO DAILY #30 caps cyclobenzaprine 5 mg tablet 5 mg PO TID PRN muscle spasm #30 03/21/24 03/02/25 Rx tabs diphenoxylate-atropine 2.5 1 tablet PO DAILY PRN diarrhea #30 09/21/24 03/02/25 Rx mg-0.025 mg tablet tabs fluticasone propionate 50 See Rx Instructions .Route 09/21/24 03/02/25 Rx mcg/actuation nasal .COMPLEX #48 mL spray,suspension losartan 50 mg tablet See Rx Instructions .Route 09/21/24 03/02/25 Rx .COMPLEX #90 tabs pantoprazole 40 mg tablet,delayed See Rx Instructions .Route 09/21/24 03/02/25 Rx release .COMPLEX #90 tabs pravastatin 80 mg tablet See Rx Instructions .Route 12/14/24 03/02/25 Rx .COMPLEX #90 tabs vibegron 75 mg tablet (Gemtesa) See Rx Instructions .Route 12/14/24 03/02/25 Rx .COMPLEX #90 tabs gabapentin 300 mg capsule 600 mg PO Q12H 02/09/25 03/02/25 History tirzepatide (weight loss) 10 10 mg (0.5 mL) subcut WEEKLY #2 mL 02/13/25 03/02/25 Rx mg/0.5 mL subcutaneous pen injector (Zepbound) albuterol sulfate 2.5 mg/3 mL 2.5 mg inhalation Q6H PRN 02/21/25 03/02/25 History (0.083 %) solution for nebulization shortness of breath or wheezing colesevelam 3.75 gram oral powder 3,750 mg PO DAILY PRN diarrhea 02/21/25 03/02/25 History packet meloxicam 15 mg tablet 15 mg PO DAILY PRN Arthritis 02/21/25 03/02/25 History prednisone 20 mg tablet 40 mg PO DAILY PRN Asthma 02/21/25 03/02/25 History acetaminophen 300 mg-codeine 15 mg 1 tablet PO .Q8 PRN pain 03/01/25 03/01/25 History tablet albuterol sulfate 90 mcg/actuation 2 puff inhalation Q4-6H PRN 03/01/25 03/01/25 History aerosol inhaler shortness of breath or wheezing lidocaine 4 % topical patch 1 patch topical DAILY PRN pain 03/01/25 03/01/25 History (Lidocaine Pain Relief) fluticasone fur. 100 mcg-umeclid See Rx Instructions .Route 03/06/25 Rx 62.5 mcg-vilant 25 mcg .COMPLEX #60 ea inhalat.powder (Trelegy Ellipta) tirzepatide (weight loss) 12.5 12.5 mg (0.5 mL) subcut WEEKLY #2 03/10/25 Rx mg/0.5 mL subcutaneous pen mL injector (Zepbound) Airsupra 90 mcg-80 mcg/actuation See Rx Instructions .Route 03/14/25 Rx HFA aerosol inhaler .COMPLEX #10.7 ea (albuterol-budesonide) Patient hx anesthesia problems: none Family hx anesthesia problems: none Results Review: All pre-operative results and documents have been reviewed as part of the pre-operative evaluation. [facility] Past Medical History Medical History (Updated 03/22/25 @ 14:44 by Gerard Stewart DO) Hypertension Obesity due to excess calories History of stress test (~2020) Mass of right kidney Chest pain Overactive bladder Screening for breast cancer Osteopenia Left lower quadrant pain Urinary urgency Menopausal osteoporosis Cough Dyslipidemia (high LDL; low HDL) Gastro-esophageal reflux disease without esophagitis Mild intermittent asthma, uncomplicated Hypovitaminosis D Surgical History Surgical History History of tooth extraction History of breast biopsy x3 History of appendectomy History of cholecystectomy H/O: hysterectomy History of 2 sections Family History Family History Mother Family history of obesity Hypertension Family history of atrial fibrillation Family history of congestive heart failure Father Hypertension Cerebrovascular accident Patient's father is Family history of congestive heart failure Sibling History of skin cancer Social History Social History Smoking packs per day: 2 Smoking cigarettes per day: 40.0 Years smoked: 20 Smoking pack-years: 40.00 Smoking status: Former smoker Tobacco type: cigarettes Second hand tobacco smoke exposure: Yes Smoking end date: 05/23/90 Alcohol intake: current Drinks per week: 2 Substance use: never Substance use type: does not use Lack of Transportation: No Lack of Food: Never True Current Housing: I Have Housing Concerned About Future Housing: No Difficulty Paying Gas/Electric Bills: No Difficulty Paying for Meds: No Currently Unemployed: No Education: Decline to Answer Difficulty w/ Childcare or Family Care: No Living arrangements: with family Additional living arrangements comments: [place] Gender identity (if verbalized by the patient): Female Spiritual care concerns: No Anes - Eval Final PreProcedure Day of Procedure 03/22/25 14:43 Patient weight: obese Heart: regular rate and rhythm Lungs: clear to auscultation Airway: Mallampati scale class II Neurological: alert and oriented Last oral intake: >/= 8 hours ASA classification: III Emergent: no Anesthetic plan: proceed Anesthesia type and monitoring: general LMA and standard monitoring Results Review: All pre-operative results and documents have been reviewed as part of the pre-operative evaluation. Informed Consent: The patient's anesthetic plan and its attendant risks and benefits were discussed with the patient/family/POA. Questions were solicited and answers provided to the satisfaction of the patient/family/POA.
[2025-03-23] VITALS (15 sets, daily range): BP systolic 94–152; BP diastolic 46–78; PULSE 64–88; RESP 10–28; TEMP 36.4–36.9; O2SAT 93–100
--- NOTE | ~2025-03-23 | XR_ITS ---
EXAMINATION: [id number] DATE: 03/23/2025 10:04 INDICATION: Postoperative evaluation following right total knee arthroplasty. TECHNIQUE: Anteroposterior and lateral views of the right knee were obtained. COMPARISON: None. FINDINGS: Right total knee arthroplasty without patellar resurfacing appears well seated and in near anatomic a lignment. No fractures identified. Expected postoperative subcutaneous and intra-articular gas. IMPRESSION: 1. Right total knee arthroplasty, negative for postoperative purposes. Reviewed, dictated and finalized at location B.
--- OUTSIDE RECORDS SUMMARY | 2025-03-23 00:46 | XMS_ITS | Continuity of Care Document ---
Author Organization [facility] Address [address] [place] [address] [address] [place] [address] Phone Care Team Providers Care Catering Assistant Name Role Phone Maxx Barth Unavailable Unavailable Advance Directives Directive Yes / No Effective Date File Name No Information Encounters Encounter Description Practice Location Reason(s) For Visit Diagnoses Date Provider Providers Copied on Encounter [facility], [id number] [place] [address] [address], [place], [place], [id number], [place] tel:[phone] [facility] [place] No Information 8-[address] Lilly. [address] [place] [address] , [address], [place], [address], [place]. tel:[phone] Referring Provider: Maxx Leiva [address] [place] [address] [address], [place], [address]. tel:[phone] Family History Family Member Type Diagnosis Age At Onset No Information Payers Payer name Insurance type Covered alliance party ID Authoriza tion(s) No Information Social History [...]
--- OUTSIDE RECORDS SUMMARY | 2025-03-23 00:46 | XMS_ITS | Referral Summary ---
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
--- OUTSIDE RECORDS SUMMARY | 2025-03-23 00:47 | XMS_ITS | Clinical Summary ---
Author Organization [facility] Address [address] [place] [address] Care Team Providers Care Automobile Body Worker Name Role Phone Norman Medina MD Primary Care Provider [phone] Social History Tobacco Use Types Packs/Day Years [...] 1 - Tdap) 1969 Mammogram Screening 1990 Pneumococcal Vaccine: 50+ Ye ars (1 of 1 - PCV) 2000 Zoster Vaccines (1 of 2) 2000 Annual Medicare Wellness Visit 2015 Dexa Scan (General) 2015 COVID-19 Vaccine ( - 2023-2 5 [...] complete this topic Insurance [employer] Care Teams Automobile Body Worker Relationship Specialty Start Date End Date Norman Medina MD [address] [place] [address] PCP - General FAMILY PRACTICE 03/01/24
--- OUTSIDE RECORDS SUMMARY | 2025-03-23 00:47 | XMS_ITS | Clinical Summary ---
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
[2025-03-23] MEDS: LACTATED RINGERS 1,000 ML 30 ML IV CONT ×2 (07:00→09:25)
[2025-03-23] MEDS: ACETAMINOPHEN 500 MG TABLET 1000 MG PO (07:00)
[2025-03-23] MEDS: TRANEXAMIC ACID 1,000MG/ISO100 1,000 MG/100 ML BAG 200 MG IVPB (07:00)
--- NOTE | 2025-03-23 07:13 | WPDHPUPDATE1 ---
History and Physical Update Update Date/Time: 03/23/25 07:13 History and Physical has been reviewed, including an updated exam of the patient. There are NO changes in the patient's condition. Risks, benefits, and alternatives have been discussed and questions answered. Patient agrees to proceed with procedure.
[2025-03-23] MEDS: ceFAZolin 2 GM/D5W 50 ML 2 GM/50 ML BAG IVPB ×3 (07:27→23:00)
[2025-03-23] MEDS: SODIUM CHLORIDE 0.9% IV 37.7 ML, MORPHINE SULFATE INJ (*CRX) 2 MG, ROPivacaine HCL 1% 2... INFILTRATE (08:01)
[2025-03-23] MEDS: TRANEXAMIC ACID 1,000 MG/10 ML AMPUL 1000 MG IV PUSH (08:03)
--- NOTE | 2025-03-23 09:32 | W.PM.PROC2 ---
Procedure Note - Detailed Date of Procedure 03/23/25 Pre-op Diagnosis Primary OA right knee Post-op Diagnosis Same Procedure Performed Calipered, kinematically aligned total knee replacement right knee. Surgeon Hi Anderson MD Auth Specialist Chiquita Cortés PA-C Anesthesia General Findings According to the calipered kinematic alignment principles, the knee was balanced by the following verification checks incorporating 6 caliper measurements, using an insert goniometer to select the insert thickness, and adjusting the tibial resection following the kinematic alignment algorithm (see figure 160.10 published in [employer] [facility] chapter on kinematic alignment total knee arthroplasty.) The steps verified the femoral and tibial components were kinematically aligned coincident to the patient's pre arthritic joint lines, which closely restored the solomon tibial compartment forces and ligament laxities without ligament release. The [employer] SperiKA knee, designed specifically for kinematic alignment, fit optimally. Bone quality good. No ligament releases required. Mild synovitis. The record of verification checks were documented and scanned into the chart. Distal Femoral Resection: Distal Medial 6 mm(cartilage worn), Distal Lateral 8 mm Target thickness of 8mm Unworn, 6mm Worn (No Cartilage). Posterior Femoral Resection: Posterior Medial 7.5 mm, Posterior Lateral 7 mm. Target thickness of 7mm Unworn, 5mm Worn (No Cartilage). Description of Procedure General anesthesia was administered. A well-padded tourniquet was placed high on the thigh. The limb was prepped and draped in the usual sterile fashion. The limb was exsanguinated and the tourniquet inflated to 300 mmHg. A longitudinal incision was created over the midline of the knee. Sharp dissection was taken through subcutaneous tissues. Electrocautery was used for hemostasis. A trivector approach to the knee joint was performed. The ACL, anterior horns of the menisci, and fat pad were excised, and a subperiosteal dissection was carried along the posterior medial border of the tibia. The thickness of the solomon patella was measured with a caliper. The patella was resected using the oscillating saw. The best fitting anatomic patella button was selected. The fixation holes were drilled. When the patella and patella buttons combined thickness was thicker than the solomon patella, the patella was recut. Starting midway between the top of the notch in the anterior femoral cortex, I drilled a 9 mm diameter hole parallel to the anterior cortex to minimize flexion of the femoral component and promote patella tracking. I verified the existence of a 5-10 mm bone bridge between the posterior aspect of the hole and the anterior limit of the intercondylar notch. An intraosseous positioning ortega was inserted 10 cm into the femur perpendicular to the distal joint line and parallel to the anterior cortex. I used a distal femoral referencing guide that compensated 2 mm when the cartilage was worn on the distal medial femoral condyle, and 2 mm when the cartilage was worn on the distal lateral femoral condyle. The basis for setting the distal and posterior femoral resection guide is knowing that the varus and valgus grade II to IV Kellegren-Kike osteoarthritic knees have negligible bone wear at 0? and 90? and that the mean full-thickness cartilage wear approximates 2 mm. I measured the thickness of distal femoral resections with a caliper to +/- 0.5 mm. The thickness of each resection was adjusted to match the thickness of the respective condyle of the femoral component within 0.5 mm of target after compensating for cartilage wear and kerf. When the distal resection was 1-2 mm too thin, a recut guide was used to adjust the cut. When the distal resection was too thick, a 1 or 2 mm thick washer was fixed to the back of the 4-in-1 chamfer block to tomás a corrective gap between the femoral component and distal femur. I set posterior femoral referencing guide at 0? orientation to position the pin holes for the 4 in 1 chamfer block. The arnoldo wing measured the width of the distal femoral resection and selected the size of the 4 in 1 chamfer block and femoral component. The AP sizer confirmed the size. I measured the thickness of the posterior femoral resections with a caliper before making the anterior and chamfer cuts. I adjusted the thicknesses of each resection to match the thickness of the respective condyle of the femoral component within +/-0.5 mm after compensating for cartilage wear and curve. When a posterior resection femoral resection was 1-2 mm too thick or thin a corrective correction was made by shifting or rotating the 4 in 1 chamfer block as needed. The chamfer block was secured in the correct position with compression screws. The anterior and chamfer femoral resections were made. These caliper measurements and corrections verified that the femoral component was set coincident with the patient's pre-arthritic distal and posterior femoral joint lines. I removed all the medial and lateral femoral and tibial osteophytes to restore the pre arthritic length of the medial and lateral collateral ligaments. I michi AP lines along the major axis of the lateral tibial plateau in between the tibial spines which identified the flexion extension plane of the knee. A conventional extramedullary tibial resection guide was applied to the ankle. An arnoldo wing was placed medially in the saw slot. The varus valgus angle of the tibial resection guide was adjusted until the guide paralleled the proximal tibial articular surface after compensating for cartilage and bone wear. The slope of flexion extension angle of the tibial resection guide was adjusted until the arnoldo wing paralleled the slope of the medial tibia after compensating for wear. The AP axis of the tibial resection guide was adjusted parallel to the two lines. The proximal tibia was resected, partially releasing the insertion of the posterior cruciate ligament. The thickness of the medial and lateral lateral tibial condyle was measured at the base of the tibial spines. I visually verified the slope of the medial border of the resection was parallel to the patient's pre arthritic slope after compensating for cartilage and bone wear. I removed the remnants of the posterior horns of the menisci and posterior osteophytes and cauterized the inferior lateral genicular vessels. The Aquamantys bipolar device was also used to for additional hemostasis. When the knee had a preoperative flexion contracture of 20? or more I teased the capsule off the posterior femur with a curved 3 quarter-inch osteotome. I administered the posterior femoral periosteal injection by delivering 10 cc using a 20 gauge spinal needle at the most medial and 10 cc at the most lateral femoral spur surface which reduced the risk of injury to the posterior neurovascular structures. I followed 6 options in a decision tree to fine tune the varus valgus and posterior slope orientation of the tibial component to restore the patient's pre arthritic tibial joint line and limb alignment. First, I adjusted the varus-valgus orientation of the proximal tibia resection working in 1 degree to 2 degree increments until there was negligible medial and lateral lift off of the distal femoral and proximal tibial resection from the spacer block during a varus valgus laxity assessment in extension. I selected the largest anatomic shape trial tibial base plate that fit within the cortical boundary of the proximal tibial resection. The base plate was best fit parallel to the cortical boundary which set the Internal-external orientation of the anterior to posterior and medial to lateral positions. The best fit method set the AP axis of the tibial base plate and insert parallel to the flexion extension plane of the pre arthritic knee. I pinned the trial tibial base plate, prepared the cruciate slot, and fixed the base plate to the tibia with the cruciate stem. I inserted the trial femoral component. The knee was placed in full extension. Varus valgus laxity is of the knee with trial components were assessed. When asymmetric laxity was observed a 1-2 degree varus or valgus recut guide was used to fine tune the tibial resection until the laxity was 1 degree or less in full extension like the solomon knee. The following steps determined the optimal insert thickness within +/-1 mm. First I inserted an insert goniometer that matched the thickness of the spacer block. I reduced the patella and then with the knee in maximum extension, I verified the knee hyperextended a few degrees and had negligible varus valgus laxity, like the pre arthritic knee. Next, I measured the external tibial orientation which was the angle the insert goniometer intersected the sagittal line on the medial condyle of the femoral trial component. Then with the knee in 15-30 degrees flexion I verified a 3-4 mm gap in the lateral compartment and no gap in the medial compartment during a 2nd varus valgus laxity test. Next, I placed the knee in 90? of flexion and the foot resting on the operating table and measured the internal tibial orientation. I repeated the steps until I identified the insert thickness that provided the highest external tibia orientation in extension and the highest internal tibial orientation at 90? flexion without anterior lift-off of the insert from the tibial base plate. The insert with this thickness was implanted. I applied a posterior drawer test with the tibia distracted by gravity and verified no posterior subluxation of the tibia relative to the femur. The patella remained centered on the trochlea and tracked well throughout the entire arc of flexion and extension. I used pulse lavage to clean the bony surfaces of debris and dried bone. I cemented the tibial, femoral, and patellar components using 1 bag of methylmethacrylate with Gentamycin, then rechecked the stability at full extension, 15-30 degrees, and 90? flexion and verified zoroastrian of the entire arc of motion of the knee. The circulating nurse confirmed the sponge and needle counts were correct. I used pulse lavage to rinse the joint and wound. The extensor mechanism was closed with interrupted #1 Vicryl suture and #1 running Stratafix suture. The subcutaneous layer was closed with interrupted #1 Vicryl suture followed by 2-0 Stratafix and 3-0 Stratafix. Steri-Strips placed on the skin. Silver impregnated occlusive dressing applied to the wound. A light gauze wrap and Kevin bandage were placed. The patient was transferred to the recovery room in stable condition. There were no complications. Implants [employer] GMK spheriKA Femoral component SpheriKA size 3, tibial component size t4i3, vitamin-E flex insert, thickness 12mm. Estimated Blood Loss 20 Drains No Pathology None sent Complications No immediate complications Condition Stable Disposition PACU [facility] Billing Surgery - Charge Forward: Surgery Billing
[2025-03-23] MEDS: fentaNYL CITRATE INJ (*CRX) 100 MCG/2 ML VIAL 25 MCG IV PUSH ×8 (09:38→09:52)
[2025-03-23] MEDS: ONDANSETRON INJ 4 MG/2 ML VIAL IV PUSH (09:41)
[2025-03-23] MEDS: HYDROmorphone HCL INJ (*CRX) 1 MG/ML SYR 0.5 MG IV PUSH ×2 (09:55→10:05)
--- NOTE | 2025-03-23 11:10 | ADMGEN ---
This patient, Susanna Beaulieu, was admitted to Medical Room 246-01. Patient/family oriented to hospital policies and general routines including ID bracelet, bed and alarms, visiting hours, pain management, procedures, bathroom and other care routines, personal items, smoking policy, room service/diet, and visiting hours. Information on how to activate the Rapid Response Team has been discussed. Patient/Family are encouraged to report perceived risks to care and to ask questions if they do not understand what they are told or what they should do.
[2025-03-23] MEDS: ASPIRIN 81 MG ENTERIC TABLET PO ×2 (11:56→20:42)
[2025-03-23] MEDS: ACETAMINOPHEN 325 MG TABLET 650 MG PO ×3 (11:57→23:07)
[2025-03-23] MEDS: MELOXICAM 7.5 MG TABLET PO ×2 (11:57→16:57)
[2025-03-23] MEDS: SENNA/DOCUSATE SODIUM TABLET 2 TAB PO ×2 (11:57→16:57)
[2025-03-23] MEDS: oxyCODONE/ACETAMINOPHEN (*CRX) 10-325 MG TABLET 1 TAB PO (13:43)
[2025-03-23] MEDS: predniSONE 5 MG TABLET PO (16:58)
[2025-03-23] MEDS: PRAVASTATIN SODIUM 20 MG TABLET 80 MG BY MOUTH (20:41)
[2025-03-23] MEDS: GABAPENTIN 300 MG CAPSULE 600 MG PO (20:42)
[2025-03-23] MEDS: oxyCODONE/ACETAMINOPHEN (*CRX) 5-325 MG TABLET 1 TABLET PO (21:40)
[2025-03-24 00:31] VITALS: BP 114/49; PULSE 61; RESP 20; TEMP 36.2; O2SAT 97
[2025-03-24] MEDS: oxyCODONE/ACETAMINOPHEN (*CRX) 10-325 MG TABLET 1 TAB PO ×2 (02:00→07:54)
[2025-03-24 04:43] VITALS: BP 112/53; PULSE 67; RESP 20; TEMP 36.2; O2SAT 99
[2025-03-24 05:22] LABS: Basophils Percent Auto 0.2 % (0.2-1.2); Eosinophils Percent Auto 0.1 % (0-4.4); Hematocrit 37.1 % (37.0-47.0); Hemoglobin 11.4 g/dL (12.0-15.0); Immature Granulocyte Absolute 0.05 K/mm3 (0.00-0.031); Immature Granulocyte Percent A 0.5 % (0-0.5); Lymphocytes Percent Auto 11.4 % (18.3-44.2); Mean Corpuscular HGB Conc 30.7 g/dl (32-36); Mean Corpuscular Hemoglobin 29.8 pg (26-34); Mean Corpuscular Volume 97.1 fl (80-100); Mean Platelet Volume 11.7 fl (7.4-10.4); Monocytes Absolute Auto 0.9 K/mm3 (0.1-0.6); Monocytes Percent Auto 8.4 % (2.6-8.5); Neutrophils Absolute Auto 8.3 K/mm3 (1.3-6.7); Neutrophils Percent Auto 79.4 % (45.5-73.1); Platelet Count Result 188 k/mm3 (150-375); Red Blood Count 3.82 M/mm3 (4.2-5.4); Red Cell Distribution Width 13.2 % (11.5-14.5); White Blood Count 10.5 K/mm3 (4.5-10.0)
[2025-03-24 05:27] LABS: Anion Gap 6 mmol/L (4-12); Blood Urea Nitrogen 14 mg/dL (7-17); Calcium 9.1 mg/dL (8.4-10.2); Carbon Dioxide 26 mmol/L (22-30); Chloride 104 mmol/L (98-107); Estimated CRCL calculation 66 ml/min; Estimated Glomerular Filt Rate > 60; Glucose 117 mg/dL (65-110); Sodium 136 mmol/L (137-145)
[2025-03-24] MEDS: CALCIUM CARBONATE (TUMS) 500 MG (200 MG ELEMENTAL) PO (05:34)
[2025-03-24] MEDS: ACETAMINOPHEN 325 MG TABLET 650 MG PO ×2 (05:34→12:15)
[2025-03-24] MEDS: HYDROmorphone HCL INJ (*CRX) 2 MG/ML VIAL 1 MG IV PUSH (05:39)
[2025-03-24] MEDS: MELOXICAM 7.5 MG TABLET PO (07:54)
[2025-03-24] MEDS: ceFAZolin 2 GM/D5W 50 ML 2 GM/50 ML BAG IVPB (07:55)
[2025-03-24 08:04] VITALS: BP 138/52; PULSE 68; RESP 16; TEMP 36.4; O2SAT 99
[2025-03-24] MEDS: GABAPENTIN 300 MG CAPSULE 600 MG PO (08:06)
[2025-03-24] MEDS: ASPIRIN 81 MG ENTERIC TABLET PO (08:06)
[2025-03-24] MEDS: LOSARTAN POTASSIUM 50 MG TABLET PO (08:06)
[2025-03-24] MEDS: SENNA/DOCUSATE SODIUM TABLET 2 TAB PO (08:06)
[2025-03-24] MEDS: PANTOPRAZOLE 40 MG TABLET BY MOUTH (08:06)
--- NOTE | 2025-03-24 08:06 | PCPTNOTE ---
Attempted to see patient for PT, however per RN asked PT to wait to see patient due to patient having pain and RN just giving pain medication.
--- NOTE | 2025-03-24 08:55 | PCPTNOTE ---
Attempted to see patient for PT, however patient refused due to 8/10 pain. RN gave pain medication about 35 minutes ago. RN notified patient still in pain.
[2025-03-24] MEDS: oxyCODONE/ACETAMINOPHEN (*CRX) 5-325 MG TABLET 1 TABLET PO (13:15)
== END 2025-03-24 13:30 | disposition home or self-care (01) ==
LOC: ANHSURGERY 07:12 → ANH2MED 11:00
PROVIDERS: Physician Assistant Surgical; PCP Family Medicine; Visit Provider Orthopaedic Surgery
PROC: (CPT 27447; principal; 2025-03-23 07:30)
DX: M17.11 Unilateral primary osteoarthritis, right knee (principal); Z87.891 Personal history of nicotine dependence; E66.9 Obesity, unspecified; Z68.38 Body mass index [BMI] 38.0-38.9, adult
CPT/HCPCS: 27447; 36415; 73560; 80048; 85025; 86850; 86900; 86901; 97110; 97116; 97161; 97165; 97530; 97535; A9270; C1713; C1776; J0171; J0690; J1100; J1171; J1885; J2003; J2250; J2270; J2405; J2704; J2795; J3010; J7120; J7512

== ENCOUNTER 2025-04-13 09:41 | Emergency (ER) | payer MEDICARE, SELFPAY ==
--- NOTE | 2025-04-13 09:45 | ED.BACK ---
HPI - Back Pain/Injury General Chief Complaint: Back Pain/Injury Stated Complaint: Back Pain Time Seen by Provider: 04/13/25 09:52 Source: patient, RN notes reviewed and old records reviewed Mode of arrival: ambulatory Limitations: no limitations History of Present Illness HPI Narrative: 74 yo female presents to the [facility] with left lower back pain that started Thursday night or Thursday morning. Did try to put a lidocaine patch on her back on Thursday. Taking some leftover Flexeril Patient has a history of recent knee replacement. Patient denies any numbness tingling in extremities. Denies any saddle anesthesia. Midline tenderness. Pain is worse with movement. Denies loss or retention of bowel or bladder Related Data Home Medications ?Medication ?Instructions ?Recorded ?Confirmed ?Last Taken ?Type albuterol sulfate 90 mcg/actuation 2 puff inhalation Q4-6H PRN 03/01/25 04/13/25 Unknown History aerosol inhaler shortness of breath or wheezing lidocaine 4 % topical patch 1 patch topical DAILY PRN pain 03/01/25 04/13/25 Unknown History (Lidocaine Pain Relief) meloxicam 7.5 mg tablet 7.5 mg PO DAILY 04/13/25 04/13/25 Unknown History tirzepatide (weight loss) 5 mg/0.5 5 mg subcut WEEKLY 04/13/25 04/13/25 Unknown History mL subcutaneous pen injector (Zepbound) Allergies Allergy/AdvReac Type Severity Reaction Status Date / Time No Known Allergies Allergy Verified 04/14/25 08:39 Review of Systems Review of Systems: All systems reviewed & are unremarkable except as noted in HPI and below Constitutional: Constitutional: Reports no additional constitutional complaints ENT: Reports system reviewed and no additional complaints, except as documented Cardiovascular: Cardiovascular: Reports no additional cardiovascular complaints, Denies chest pain and Denies dyspnea Respiratory: Respiratory: Reports no additional respiratory complaints, Denies chest congestion, Denies cough and Denies dyspnea Musculoskeletal: Musculoskeletal: Reports as per HPI Integumentary/Breasts: Skin/Breast: Reports system reviewed and no additional complaints, except as docu [facility] Past Medical History Medical History Hypertension Obesity due to excess calories History of stress test (~2020) Mass of right kidney Chest pain Overactive bladder Screening for breast cancer Osteopenia Left lower quadrant pain Urinary urgency Menopausal osteoporosis Cough Dyslipidemia (high LDL; low HDL) Gastro-esophageal reflux disease without esophagitis Mild intermittent asthma, uncomplicated Hypovitaminosis D Surgical History Surgical History History of tooth extraction History of breast biopsy x3 History of appendectomy History of cholecystectomy H/O: hysterectomy History of 2 sections Family History Family History Mother Family history of obesity Hypertension Family history of atrial fibrillation Family history of congestive heart failure Father Hypertension Cerebrovascular accident Patient's father is Family history of congestive heart failure Sibling History of skin cancer Social History Social History Smoking packs per day: 2 Smoking cigarettes per day: 40.0 Years smoked: 20 Smoking pack-years: 40.00 Smoking status: Former smoker Second hand tobacco smoke exposure: Yes Alcohol intake: current Drinks per week: 2 Substance use: never Substance use type: does not use Do You Feel Safe in your Home?: Yes Lack of Transportation: No Lack of Food: Never True Current Housing: I Have Housing Concerned About Future Housing: No Difficulty Paying Gas/Electric Bills: No Difficulty Paying for Meds: No Currently Unemployed: No Education: Decline to Answer Difficulty w/ Childcare or Family Care: No Living arrangements: with family Additional living arrangements comments: [place] Gender identity (if verbalized by the patient): Female Spiritual care concerns: No Comments At the time of my signature, I reviewed and agree with the nursing past medical, surgical, social, and family history. There is no relevant family history pertinent to the patient complaint. Exam Const: General: cooperative, healthy appearing, comfortable, no acute distress, well developed, alert and well nourished Nutritional Appearance: well nourished Orientation/consciousness: patient oriented x3 Limitations: no limitations HENMT: Head: normal to inspection Eyes: General: appearance normal, both eyes and all related structures Alignment and Position: alignment normal Neck: Neck: normal visual inspection, full ROM, no lymphadenopathy and no meningeal signs Chest: Chest palpation & inspection: normal inspection of the chest Resp: Effort & Inspection: normal respiratory effort and able to speak in complete sentences Auscultation: clear to auscultation bilaterally, no crackles, no rales, no rhonchi and no wheezes Cardio: Rate: regular rate GI: GI Palp: No abdominal tenderness Back/Spine/Pelvis: Back: back tenderness Cervical Spine: normal cervical lordosis and No Cervical spine tenderness Thoracic/Lumbar Spine: paraspinal muscle tenderness on the left in the lower lumbar, No thoracic spinal tenderness and No lumbar spinal tenderness Back/spine/pelvis image:  1. Discomfort with movement. No erythema, ecchymosis. No rashes. No midline tenderness. Skin: General skin exam: normal color and no rashes or lesions noted Neuro: General: patient oriented x3, gait normal, moves all extremities and no meningeal signs Cognition (Neuro): normal cognition Speech: normal speech Gait exam (Neuro): Normal gait present Extrem: General: normal to inspection, full ROM, capillary refill normal and normal gait Psych: Appearance: grossly normal and well kempt Mental Status: mental status grossly normal Speech and movement: Normal speech and movement present and Clear speech present Affect: normal affect Attitude: cooperative Course Course Level of Care: Express Care Visit Vital Signs Vital signs: Vital Signs Temperature 97.4 F L 04/13/25 09:47 Pulse Rate 88 04/13/25 09:47 Respiratory Rate 16 04/13/25 09:47 Blood Pressure 139/80 04/13/25 09:47 Pulse Oximetry 100 04/13/25 09:47 Oxygen Delivery Room Air 04/13/25 09:47 Temperature 97.4 F L 04/13/25 09:47 Pulse Rate 88 04/13/25 09:47 Respiratory Rate 16 04/13/25 09:47 Blood Pressure 139/80 04/13/25 09:47 Pulse Oximetry 100 04/13/25 09:47 Oxygen Delivery Room Air 04/13/25 09:47 Reviewed MDM - Back Pain/Injury MDM Narrative Medical decision making narrative: Patient sitting in exam room. Patient is nontoxic vitals are stable. Patient presents with left lower back pain. No red flag symptoms noted on exam. Pain is worse with movement. No trauma. Exam most consistent with muscle strain of the left lower back Patient appropriate for outpatient treatment and follow-up Discharge instructions reviewed with patient, as well as provided in writing per nursing staff. The instructions also include specific and strict return/GO TO THE ER as well as f/u information. All questions have been answered, and the patient deny any further questions with discharge and discharge plan. Some parts of this dictation were generated by voice recognition software and may contain typographical and/or grammatical inaccuracies. Differential Diagnosis Differential diagnosis: Likely lumbar radiculopathy, sciatica and strain of lumbar region Critical Care Time Critical Care Time Critical Care Time: No Discharge Plan Discharge Clinical Impression: Strain of lumbar paraspinous muscle Patient Disposition: Home Condition: Stable Instructions: Antibiotic Form, Low Back Strain (ED), Acute Low Back Pain (ED), Lower Back Exercises (ED) Additional Instructions: Take Baclofen (muscle relaxer) as directed. Do not drink, drive, operate machinery, or do anything dangerous while taking this medication Exercise:Combine aerobic exercise, like walking or swimming, with specific exercises to keep the muscles in your back and abdomen strong and flexible. Proper Lifting:Be sure to lift heavy items with your legs, not your back. Do not bend over to pick something up. Keep your back straight and bend at your knees. Weight:Maintain a healthy weight. Being overweight puts added stress on your lower back. Avoid Smoking:Both the smoke and the nicotine cause your spine to age faster than normal. Proper Posture:Good posture is important for avoiding future problems. A therapist can teach you how to safely stand, sit, and lift. Use warm moist heat to help with pain. Using topical such as Biofreeze, [place]-Richard or Aspercreme can also help Follow up with Primary provider in 2-3 days, This may become a chronic condition and they will be the one to help manage your pain and order additional testing. Go to the nearest ER if you develop problems with bladder/bowel function, weakness or loss of feeling in one or both of your legs. Patient Language: Lithuanian Prescriptions: New baclofen 10 mg tablet 10 mg PO TID PRN (Reason: muscle pain) Qty: 15 0RF lidocaine 5 % adhesive patch,medicated 1 patch topical DAILY Qty: 15 0RF Rx Instructions: leave on most painful area for up to 12 hrs No Action meloxicam 7.5 mg tablet 7.5 mg PO DAILY Zepbound 5 mg/0.5 mL pen injector 5 mg SUBCUT WEEKLY cholecalciferol (vitamin D3) 125 mcg (5,000 unit) capsule 250 mcg PO DAILY Qty: 30 0RF albuterol sulfate 90 mcg/actuation HFA aerosol inhaler 2 puff INHALATION Q4-6H PRN (Reason: shortness of breath or wheezing) lidocaine [Lidocaine Pain Relief] 4 % adhesive patch,medicated 1 patch topical DAILY PRN (Reason: pain) pantoprazole 40 mg tablet,delayed release (DR/EC) See Rx Instructions .ROUTE .COMPLEX Qty: 90 1RF Dose Instruction: TAKE 1 TABLET BY MOUTH ONCE DAILY Rx Instructions: TAKE 1 TABLET BY MOUTH ONCE DAILY losartan 50 mg tablet See Rx Instructions .ROUTE .COMPLEX Qty: 90 1RF Dose Instruction: TAKE 1 TABLET BY MOUTH EVERY DAY Patient Comments: QAM Rx Instructions: TAKE 1 TABLET BY MOUTH EVERY DAY Gemtesa 75 mg tablet See Rx Instructions .ROUTE .COMPLEX Qty: 90 1RF Dose Instruction: TAKE 1 TABLET BY MOUTH EVERY DAY Rx Instructions: TAKE 1 TABLET BY MOUTH EVERY DAY pravastatin 80 mg tablet See Rx Instructions .ROUTE .COMPLEX Qty: 90 1RF Dose Instruction: TAKE 1 TABLET BY MOUTH EVERY DAY Patient Comments: HS Rx Instructions: TAKE 1 TABLET BY MOUTH EVERY DAY Zepbound 10 mg/0.5 mL pen injector 10 mg subcut WEEKLY Qty: 2 3RF Zepbound 12.5 mg/0.5 mL pen injector 12.5 mg subcut WEEKLY Qty: 2 0RF oxycodone-acetaminophen 5-325 mg tablet 1 - 2 tablet PO Q4-6H PRN (Reason: pain) 7 Days Qty: 30 0RF gabapentin 300 mg capsule 600 mg PO Q12H Qty: 90 0RF Dose Instruction: TAKE 1 CAPSULE BY MOUTH THREE TIMES A DAY Rx Instructions: TAKE 2 CAPSULES IN AM AND 2 CAPSULES IN PM Follow-up/Referrals: Norman Medina MD [Primary Care Provider] - 3 Days Hi Anderson MD [Physician] - Time of Disposition: 10:04
[2025-04-13 09:47] VITALS: BP 139/80; PULSE 88; RESP 16; TEMP 36.3; O2SAT 100
== END 2025-04-13 10:21 | disposition home or self-care (01) ==
PROVIDERS: Emergency Provider Nurse Practitioner; PCP Family Medicine
DX: S39.012A Strain of muscle, fascia and tendon of lower back, initial encounter (principal); X58.XXXA Exposure to other specified factors, initial encounter; Z87.891 Personal history of nicotine dependence; I10 Essential (primary) hypertension; N32.81 Overactive bladder; M85.80 Other specified disorders of bone density and structure, unspecified site; E78.5 Hyperlipidemia, unspecified; K21.9 Gastro-esophageal reflux disease without esophagitis; J45.909 Unspecified asthma, uncomplicated; E66.09 Other obesity due to excess calories; Z68.36 Body mass index [BMI] 36.0-36.9, adult; E55.9 Vitamin D deficiency, unspecified
CPT/HCPCS: 99213; G0463

== ENCOUNTER 2025-04-24 15:15 | Outpatient (RCR) | payer MEDICARE, SELFPAY ==
--- NOTE | 2025-03-15 14:30 | PTOPEVAL1 ---
Assessment and note entered by Ivet Resendez, PT Evaluation Information Assessment Status Evaluation ICD-10 Condition Codes (PT) Pain in right knee M25.561 Onset August 2024 Subjective Information chronic pain R knee, with increase in pain with more activity; called dr to schedule TKR; have lost 25# in prep for surgery; have been to the TKR joint class and started some of the exercises. activity: active, independent with all home and self care tasks- take breaks and not do all at once; avoid going down the stairs at home due to pain; Reported Pain Level Pain Score Self Report R knee Additional Pain Score Comments pain range in the past week: 0-4/10; decrease pain: walking, change positions, meloxicam- to stop it pre op increase pain: sit too long; reports awaken from sleep 2-5 x/night, due to knee pain Assessment PT Clinical Summary Susanna is scheduled to have R TKR on March 23. She is here today for pre op training and education. Education completed and she is motivated- doing her exercises at home, asked good questions and ready for surgery next week. She is to continue with her HEP. Will continue PT 2 weeks post op, on April 06. Goals will be established at that appointment. Plan of Care PT Services Indicated Yes Treatment Frequency and begin treatment post op on April 06 Duration These treatments will address the objective and functional deficits as defined above. The patient will be advanced safely and appropriately in order for the patient to progress towards his/her prior level of function. Additional exercises will be introduced and as well as a comprehensive home exercise program upon discharge, if needed, ?to ensure carryover of functional gains achieved in the clinic. This treatment plan has been reviewed and agreement upon by the patient.
--- NOTE | 2025-04-06 14:03 | OPREHPOC ---
Outpatient Therapy Plan of Care This is a Multidisciplinary Plan of Care that may contain components documented by all disciplines (PT, OT, and ST.) PT Problem 1 PT Problem #1 Knowledge Deficit PT Goal 1 Goal / Goal Update [place] with HEP Target Visit 4 PT Goal 2 Goal / Goal Update Report no pain greater than 1/10 for 2 consecutive weeks Target Visit 8 PT Problem 2 PT Problem #2 Impaired Range of Motion PT Goal 1 Goal / Goal Update 1. Patient will achieve terminal knee extension ROM 2. Patient will achieve 120 degrees of knee flexion ROM Target Visit 8 PT Problem 3 PT Problem #3 Impaired Gait PT Goal 1 Goal / Goal Update Patient will ambulate with even stride length bilaterally for normalization of gait Target Visit 8
--- NOTE | 2025-04-06 14:04 | PTOPREEVAL ---
Assessment and note entered by Devang Wills, PT Evaluation Information Assessment Status Re-Evaluation Diagnosis S/P R TKA ICD-10 Condition Codes (PT) Pain in right knee M25.561 Onset 03/23/25 Subjective Information Reports that she is tired today because she did all of her prep work to get ready today on her own . Denies significant pain outside of posterior knee. Feels like she is walking well and using a cane and is using it all of the time. She is having trouble sleeping not getting more than 4 hours at a time. Currently off of the strong pain medication. Reported Pain Level Pain Score 1: Self Report Assessment PT Clinical Summary Patient presents with post operative total knee arthroplasty. Swelling is minimal at this time and patient has self progressed to use of cane. Responded well to initiation of exercise and willing to push self in knee ROM at this time which needs to be our focus. Patient will benefit from skilled therapy to address deficits. Plan of Care PT Services Indicated Yes Treatment Frequency and 2x/week for 8 visits Duration These treatments will address the objective and functional deficits as defined above. The patient will be advanced safely and appropriately in order for the patient to progress towards his/her prior level of function. Additional exercises will be introduced and as well as a comprehensive home exercise program upon discharge, if needed, ?to ensure carryover of functional gains achieved in the clinic. This treatment plan has been reviewed and agreement upon by the patient.
--- NOTE | 2025-04-18 13:29 | PCPTNOTE ---
Pt did not come to last 2 visits due to back pain.
--- NOTE | 2025-07-05 13:01 | PCPTNOTE ---
PHYSICAL THERAPY DISCHARGE 07-05-25 Dr. Monica Mullins has received 5 PT sessions, from March 15 to April 24, for the diagnosis of s/p R TKR. She then stopped attending therapy. Discharge PT. The goals were not addressed.
== END 2025-06-13 23:59 | disposition home or self-care (01) ==
LOC: ANHPT 15:15
PROVIDERS: PCP Family Medicine; Visit Provider Orthopaedic Surgery
DX: Z47.1 Aftercare following joint replacement surgery (principal); Z96.651 Presence of right artificial knee joint
CPT/HCPCS: 97110; 97116; 97140; 97161; 97164; 97530

== ENCOUNTER 2025-04-25 12:21 | Outpatient (CLI) | payer MEDICARE, SELFPAY ==
--- NOTE | ~2025-04-25 | XR_ITS ---
AP view of the pelvis and AP and lateral views of the bilateral hips Clinical history: Pain Findings: No acute fracture or dislocation is seen. Osseous alignment is anatomic. Bilateral hip and SI joint spaces are preserved. Soft tissues are unremarkable. Impression: No significant abnormality is seen. Reviewed, dictated and finalized at location . Impression: No significant abnormality is seen.
--- NOTE | ~2025-04-25 | XR_ITS ---
Lumbosacral Spine: AP and lateral views Clinical History: Pain Findings: There is mild levoscoliosis. No fracture evident. There is grade 1 retrolisthesis of L3 ove r L4. There is advanced facet arthropathy throughout the lumbar spine, especially from L3 through S1. There are mild degenerative changes. The sacroiliac joints are normally outlined. Impression: Moderate to advanced degenerative spondylosis, as detailed above. Reviewed, dictated and finalized at location M. Impression: Moderate to advanced degenerative spondylosis, as detailed above.
--- OUTSIDE RECORDS SUMMARY | 2025-04-25 12:25 | XMS_ITS | Referral Summary ---
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
--- OUTSIDE RECORDS SUMMARY | 2025-04-25 12:25 | XMS_ITS | Clinical Summary ---
Author Organization 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
--- OUTSIDE RECORDS SUMMARY | 2025-04-25 12:25 | XMS_ITS | Continuity of Care Document ---
Author Organization [facility] Address [address] [place] [address] [address] [place] [address] Phone Care Team Providers Care Full Roll Inspector Name Role Phone Maxx Barth Unavailable Unavailable Advance Directives Directive Yes / No Effective Date File Name No Information Encounters Encounter Description Practice Location Reason(s) For Visit Diagnoses Date Provider Providers Copied on Encounter [facility], [id number] [place] [address] [address], [place], [place], [id number], [place] tel:[phone] [facility] [place] No Information 8-[address] Lary Lilly[address] [place] [address] , [address], [place], [address], [place]. tel:[phone] Referring Provider: Maxx Leiva [address] [place] [address] [address], [place], [address]. tel:[phone] Family History Family Member Type Diagnosis Age At Onset No Information Payers Payer name Insurance type Covered democrat ID Authoriza tion(s) No Information Social History [...]
== END 2025-04-25 12:22 | disposition home or self-care (01) ==
PROVIDERS: PCP Family Medicine; Visit Provider Family Medicine
DX: M47.816 Spondylosis without myelopathy or radiculopathy, lumbar region (principal); M47.817 Spondylosis without myelopathy or radiculopathy, lumbosacral region
CPT/HCPCS: 72100; 73521

== ENCOUNTER 2025-05-25 13:45 | Outpatient (CLI) | payer MEDICARE, SELFPAY ==
--- NOTE | ~2025-05-25 | MM_ITS ---
EXAMINATION: MM screening brynn BI w gil HISTORY: Screening mammogram TECHNIQUE: Craniocaudal and mediolateral oblique 3-D tomosynthesis images were obtained and synthetic 2-D images were generated. CAD analysis was submitted and interpreted. COMPARISON: 02/22/2024, 08/08/2020 BREAST PARENCHYMAL COMPOSITION:Not Dense. There are scattered areas of fibroglandular density. FINDINGS: No suspicious mass, calcification, or architectural distortion are identified in either luis armando ast to suggest malignancy. There has been no suspicious interval change. IMPRESSION: No mammographic evidence of malignancy. Recommend routine screening mammography in one year. BI-RADS Category 1: Negative Reviewed, dictated and finalized at location .
--- OUTSIDE RECORDS SUMMARY | 2025-05-25 13:49 | XMS_ITS | Referral Summary ---
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
--- OUTSIDE RECORDS SUMMARY | 2025-05-25 13:49 | XMS_ITS | Clinical Summary ---
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
--- OUTSIDE RECORDS SUMMARY | 2025-05-25 13:49 | XMS_ITS | Continuity of Care Document ---
Author Organization [facility] Address [address] [place] [address] [address] [place] [address] Phone Care Team Providers Care Demand Generator Manager Name Role Phone Maxx Barth Unavailable Unavailable Advance Directives Directive Yes / No Effective Date File Name No Information Encounters Encounter Description Practice Location Reason(s) For Visit Diagnoses Date Provider Providers Copied on Encounter [facility], [id number] [place] [address] [address], [place], [place], [id number], [place] tel:[phone] [facility] [place] No Information 8-[address]ary Lilly. [address] [place] [address] , [address], [place], [address], [place]. tel:[phone] Referring Provider: Maxx Leiva [address] [place] [address] [address], [place], [address]. tel:[phone] Family History Family Member Type Diagnosis Age [...]
--- OUTSIDE RECORDS SUMMARY | 2025-05-25 13:49 | XMS_ITS | Clinical Summary ---
Author Organization [facility] Address [address] [place] [address] Care Team Providers Care Antisubmarine Weapons Officer Name Role Phone Norman Medina MD Primary Care Provider [phone] Social History Tobacco Use Types Packs/Day Years [...] complete this topic Insurance AET[employer] Care Teams Antisubmarine Weapons Officer Relationship Specialty Start Date End Date Nomran Medina MD [address] [place] [address] PCP - General FAMILY PRACTICE 03/01/24
== END 2025-05-25 13:46 | disposition home or self-care (01) ==
LOC: ANHIMG 13:48
PROVIDERS: PCP Family Medicine; Visit Provider Family Medicine
DX: Z12.31 Encounter for screening mammogram for malignant neoplasm of breast (principal)
CPT/HCPCS: 77063; 77067

== ENCOUNTER 2025-07-06 08:19 | Outpatient (CLI) | payer MEDICARE, SELFPAY ==
--- NOTE | ~2025-07-06 | XR_ITS ---
XR knee LT min 4V 07/06/2025 08:39 Indication: Osteoarthritis Procedure: 4 views left knee Comparison: 12/20/2024 Findings: Mild-moderate tricompartment osteoarthritis. No fracture, subluxation or dislocation. No johana int effusion. Impression: 1: Mild-moderate tricompartment osteoarthritis. Reviewed, dictated and finalized at location A. Impression: 1: Mild-moderate tricompartment osteoarthritis.
--- OUTSIDE RECORDS SUMMARY | 2025-07-06 08:25 | XMS_ITS | Clinical Summary ---
Author Organization [facility] Address [address] [place] [address] Care Team Providers Care Diving Supervisor Name Role Phone Norman Medina MD Primary Care Provider [phone] Social History Tobacco Use Types Packs/Day Years [...] complete this topic Insurance AET[employer] Care Teams Diving Supervisor Relationship Specialty Start Date End Date Norman Medina MD [address] [place] [address] PCP - General FAMILY PRACTICE 03/01/24
--- OUTSIDE RECORDS SUMMARY | 2025-07-06 08:25 | XMS_ITS | Clinical Summary ---
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
== END 2025-07-06 08:20 | disposition home or self-care (01) ==
PROVIDERS: PCP Family Medicine; Visit Provider Orthopaedic Surgery
DX: M17.2 Bilateral post-traumatic osteoarthritis of knee (principal)
CPT/HCPCS: 73564

== ENCOUNTER 2025-08-10 12:52 | Outpatient (CLI) | payer MEDICARE, SELFPAY ==
--- OUTSIDE RECORDS SUMMARY | 2025-08-10 12:57 | XMS_ITS | Clinical Summary ---
Author Organization [facility] Address [address] [place] [address] Care Team Providers Care Molding Machine Operator Helper Name Role Phone Norman Medina MD Primary Care Provider [phone] Social History Tobacco Use Types Packs/Day Years [...] COVID-19 Vaccine ( - 2023-2 5 season) 2025 RSV Immunization or 60+ Years (1 - [...] complete this topic Insurance AET[employer] Care Teams Molding Machine Operator Helper Relationship Specialty Start Date End Date Norman Medina MD [address] [place] [address] PCP - General FAMILY PRACTICE 03/01/24
--- OUTSIDE RECORDS SUMMARY | 2025-08-10 12:57 | XMS_ITS | Clinical Summary ---
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
== END 2025-08-10 12:53 | disposition home or self-care (01) ==
LOC: ANHAUDIO 12:53
PROVIDERS: PCP Family Medicine; Visit Provider Otolaryngology
DX: H90.3 Sensorineural hearing loss, bilateral (principal); H93.13 Tinnitus, bilateral
CPT/HCPCS: 92557; 92567

== ENCOUNTER 2025-10-12 13:53 | Outpatient (CLI) | payer MEDICARE, SELFPAY ==
--- NOTE | ~2025-10-12 | DEXA_ITS ---
Bone Density Report Name: MONTEZ GONZALEZ Age: 75 Sex: Female Ethnicity: White Date of : 1950 Indication: osteopenia; height loss; inflammatory bowel disease; asthma or emphysema; hysterectomy; Referring Provider: EDGAR ETIENNE Study: Bone densitometry was performed. Exam Date: October 12, 2025 Accession number: [id number] Bone Density: Region BMD T-score Z-score Classification AP Spine(L1-L4) 0.884 -1.5 0.9 Osteopenia Femoral Neck (Left) 0.727 -1.1 1.0 Osteopenia Total Hip (Left) 0.801 -1.2 0.6 Osteopenia Femoral Neck (Right) 0.650 -1.8 0.3 Osteopenia Total Hip (Right) 0.792 -1.2 0.6 Osteopenia Total Hip Mean 0.796 -1.2 0.6 Osteopenia World Health Organization criteria for BMD impression classify patients as: Normal (T-score at or above -1.0), Osteopenia (T-score between -1.0 and -2.5), or Osteoporosis (T-score at or below -2.5). 10-year Fracture Risk(1): Major Osteoporotic Fracture 11% Hip Fracture 2.3% Reported Risk Factors: [place] (), Neck BMD=0.650, BMI=36.3 (1) FRAX(R) Version 3.08. Fracture probability calculated for an untreated patient. Fracture probability may be lower if the patient has received treatment. Previous Exams: Region Exam Age BMD T-score BMD Change BMD Change Date g/cm2 vs Baseline vs Previous AP Spine (L1-L4) 10/12/2025 75 0.884 -1.5 0.066 (8.1%)# 0.066 (8.1%)# 07/25/2023 72 0.817 -2.1 Total Hip(Left) 10/12/2025 75 0.801 -1.2 -0.055 (-6.4%) -0.094 (-10.5% 07/25/2023 72 0.895 -0.4 0.039 (4.6%)# 0.039 (4.6%)# 08/08/2020 69 0.855 -0.7 Total Hip(Right) 10/12/2025 75 0.792 -1.2 -0.122 (-13.4% -0.115 (-12.7% 07/25/2023 72 0.908 -0.3 -0.007 (-0.7%) -0.007 (-0.7%) 08/08/2020 69 0.914 -0.2 *Denotes significance at 95% confidence level, LSC for AP Spine = 0.022 g/cm2, LSC for Total Hip = 0.027 g/cm2 # Denotes dissimilar scan types or analysis methods Clinical Information Provided by Patient: Has used the following medications: Vitamin D Has the following medical conditions: Asthma or Emphysema, Inflammatory bowel diseases, Hysterectomy Patient maximum height was 62 Menopause Age: 55 No regular weight bearing exercise Drinks caffeinated beverages Onset of menses at age 13 Number of children 2 Impression: The patient has low bone mass, based on the Right Femoral Neck T-score. The patient has an estimated ten-year risk of hip fracture of 2.3% and an estimated ten-year risk of major fracture of 11%, based on the WHO FRAX algorithm. The BMD for the Total Hip(Left) decreased, changing by -10.5% since the last DXA exam. The BMD for the Total Hip(Right) decreased, changing by -12.7% since the last DXA exam. Discussion: BONE DENSITY IS LOW AT ONE OR MORE SKELETAL SITES. This patient's lowest T-score is low at one or more skeletal sites. It meets the World Health Organization's (WHO) criteria for ?low bone mass? (T-score between -1.0 and -2.5). The patient's 10-year risk of fracture as calculated by FRAX is less than the threshold where pharmacological therapy is recommended by the National Osteoporosis Foundation (NOF). However, all treatment decisions require clinical judgment and consideration of individual patient factors, including patient preferences, comorbidities, previous drug use, risk factors not captured in the FRAX model (e.g., frailty, falls, vitamin D deficiency, increased bone turnover, interval significant decline in bone density) and possible under or overestimation of fracture risk by FRAX. The patient should follow a healthful lifestyle (good nutrition with adequate calcium and vitamin D, and appropriate weight-bearing exercise). Follow-Up: Consider repeating this study in 2 years to reassess this patient's status, or sooner if there is some new clinical indication. Reported by: LATOSHA on 10/12/2025 2:37:00 PM. Reviewed, dictated and finalized at location A.
--- OUTSIDE RECORDS SUMMARY | 2025-10-12 17:14 | XMS_ITS | Clinical Summary ---
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
--- OUTSIDE RECORDS SUMMARY | 2025-10-12 17:14 | XMS_ITS | Clinical Summary ---
Author Organization [facility] Address [address] [place] [address] Care Team Providers Care In Store Marketing Representative Name Role Phone Norman Medina MD Primary Care Provider [phone] Source Comments [facility],non-owned Affiliates and Associated Physician Practices is amultiple site organization consisting of ambulatory clinics and hospital sitesin [place], [place], [place]. This disclosure is being madepursuant to the Care Everywhere program and may not contain all information available regarding this patient. Last updated 18.[employer] [facility] Allergies No known active allergies Medications * Be aware that medications may not be up to date on this document. Alwaysverify current medications with the patient. acetaminophen-c odeine (Tylenol #2) 300-15 MG tablet Take 1 (one) tablet by mouth every 8 hours as needed For pain. 5 Active albuterol HFA (Proventil; Ventolin; Proair) 108 (90 Base) MCG/ACT inhaler EVERY 4 - 6 HOURS as needed for shortness of breath or wheezing 5 Active Airsupra 90-80 MCG/ACT AERO INHALE 2 PUFFS BY MOUTH ONCE A SINGLE DOSE MAY REPEAT UP TO 6 DOSES PER DAY (12 INHALATIONS) 5 Active amoxicillin (Amoxil) 500 MG capsule TAKE 1 CAPSULE BY MOUTH EVERY 6 HOURS 5 Active atorvastatin (Lipitor) 40 MG tablet Take 1 (one) tablet by mouth once daily Active diphenoxylate-a tropine (Lomotil) 2.5-0.025 MG tablet TAKE 1 TABLET BY MOUTH ONCE DAILY NEEDED FOR DIARRHEA 5 Active meloxicam (Mobic) 15 MG tablet PLEASE SEE ATTACHED FOR DETAILED DIRECTIONS 5 Active pantoprazole EC (Protonix) 40 MG tablet Take 1 (one) tablet by mouth once daily Active pravastatin (Pravachol) 80 MG tablet Take 1 (one) tablet by mouth once daily 5 Active Zepbound 15 MG/0.5ML injection ADMINISTER 15 MG UNDER THE SKIN WEEKLY 5 Active vibegron (Gemtesa) 75 MG tablet .COMPLEX 5 Active losartan (Cozaar) 50 MG tablet Take 1 (one) tablet by mouth once daily Active gabapentin (Neurontin) 300 MG capsule TAKE 2 CAPSULES BY MOUTH EVERY 12 HOURS (TAKE IN MORNING AND EVENING) 5 Active lidocaine (Lidoderm) 5 % patch APPLY 1 PATCH TO THE SKIN ONCE DAILY, LEAVE ON MOST PAINFUL AREA FOR UP TO 12 HOURS 5 Active Xiidra 5 % opthalmic solution LOCATION: BOTH EYES. INSTILL 1 DROP IN EACH EYE TWICE A DAY 5 Active loteprednol (Lotemax) 0.5 % ophthalmic suspension INSTILL 1 DROP 3 TIMES A DAY INTO BOTH EYES FOR 2 WEEKS 4 Active Active Problems No known active problems Encounters Date Type Department Care Team Description 10/10/2025 1:00 PM INTERNATIONAL ORGANIZER Office Visit [facility] - ENT [address] [place] [phone] Mary Allen, KARLENE Presbylarynges (Primary Dx); Dysphonia; Chronic cough 10/10/2025 Travel 09/26/2025 1:00 PM INTERNATIONAL ORGANIZER Office Visit [facility] - ENT [address] [place] [phone] Mary Allen, OPEN HEARTH HELPER Presbylarynges (Primary Dx); Dysphonia; Chronic cough 09/26/2025 Travel 09/06/2025 10:30 AM CDT Office Visit [facility] - Otolaryngology [address] [place] [phone] Dylan [facility] Dysphonia 09/06/2025 Telephone [facility] - ENT [address] [place] [phone] Mary Allen, OPEN HEARTH HELPER Speech Therapy 09/06/2025 Travel 08/29/2025 Travel from Last 3 Months Social History Tobacco Use Types Packs/Day Years Used Date Smoking Tobacco: Never Passive Smoke Exposure: Never Smokeless Tobacco: Never Alcohol Use Standard Drinks/Week Comments Yes 3 (1 standard drink = 0.6 oz pur e alcohol) social Comments Unknown Sex and Gender Information Value Date Recorded Sex Assigned at Not on file Legal Sex Female 8:41 AM CDT Gender Identity Not on file Sexual Orientation Not on file Last Filed Vital Signs Vital Sign Reading Time Taken Comments Blood Pressure 119/75 09/06/2025 9:47 AM CDT Pulse 74 09/06/2025 9:47 AM CDT Temperature - - Respiratory Rate - - Oxygen Saturation 98% 09/06/2025 9:47 AM CDT Inhaled Oxygen Concentration - - Weight 88 kg (194 lb) 09/06/2025 9:47 AM CDT Height 157.5 cm (5' 2) 09/06/2025 9:47 AM CDT Body Mass Index 35.48 09/06/2025 9:47 AM CDT Plan of Treatment Upcoming Encounters Date Type Department Care Team (Late st Contact Info) Description 11/01/2025 1:30 PM INTERNATIONAL ORGANIZER Office Visit [facility] - ENT [address] [place] [phone] Mary Allen, OPEN HEARTH HELPER [address] [place] [address] [place] [phone] Health Maintenance Due Date Last Done Comments BONE DENSITY TESTING 1950 COLOGUARD (AGES 45-75) - COLON CA SCREENING 1950 COLON MONITORING 1950 COLONOSCOPY - COLON CA SCREENING 1950 CT COLONOGRAPHY - COLON CA SCREENING 1950 Colorectal Cancer Screening 1950 FIT - COLON CA SCREENING 1950 FLEX SIG - COLON CA SCREENING 1950 MAMMOGRAM 1950 HEPATITIS C SCREENING 10/08/1968 DTAP/TDAP/TD VACCINES (1 - Tdap) 1969 PNEUMOCOCCAL VACCINE 50+ (1 of 1 - PCV) 2000 ZOSTER VACCINE (1 of 2) 2000 DEPRESSION SCREENING 11/23/2024 MEDICARE AWV CALENDAR YEAR 2024 COVID-19 VACCINE ( season) 2025 08/11/2024, 08/04/2022, 08/30/2021, Additional history exists INFLUENZA VACCINE (#1) 2025 , 09/13/2019, 07/28/2018, Additional history exists Respiratory Syncytial Virus (RSV) Vaccine Pt: or over 60 yrs (1 - 1-dose 75+ series) 2025 HEPATITIS B VACCINE Aged Out No longe r eligible based on patient's age to complete this topic HIB VACCINE Aged Out No longer eligi ble based on patient's age to complete this topic HPV VACCINE Aged Out No longer eligi ble based on patient's age to complete this topic MENINGOCOCCAL (Group B) VACCINE SHARED DECISION-MAKING Aged Out No longer eligible based on patient's age to complete this topic MENINGOCOCCAL GROUPS A/C/Y/W VACCINE Aged Out No longer eligible based on patient's age to complete this topic Insurance AETNA MEDICARE ADV Care Teams In Store Marketing Representative Relationship Specialty Start Date End Date Norman Medina MD [address] [place] [address] PCP - General Family Medicine 09/06/25
== END 2025-10-12 13:54 | disposition home or self-care (01) ==
LOC: ANHFOHIMG 13:54
PROVIDERS: PCP Family Medicine; Visit Provider Family Medicine
DX: M85.88 Other specified disorders of bone density and structure, other site (principal); Z78.0 Asymptomatic menopausal state
CPT/HCPCS: 77080

== ENCOUNTER 2025-10-17 08:47 | Outpatient (CLI) | payer MEDICARE, SELFPAY ==
--- NOTE | ~2025-10-17 | XR_ITS ---
[id number] Indication: M54.10 - Radiculopathy, site unspecified Comparison: None Findings: Grade 1 retrolisthesis of C3 on C4, no fracture is identified. Moderate loss of disc height throughout. Soft tissues unremarkable Impression: No acute abnormality. Reviewed, dictated and finalized at location P. [facility] Impression: No acute abnormality.
--- NOTE | ~2025-10-17 | XR_ITS ---
XR thoracic spine 3V Indication: M54.10 - Radiculopathy, site unspecified Comparison: None Findings: Moderate loss of vertebral height throughout, no fracture or subluxation. Moderate to severe loss of disc height throughout. Soft tissues unremarkable Impression: No acute abnormality. Reviewed, dictated and finalized at location P. [facility] Impression: No acute abnormality.
--- OUTSIDE RECORDS SUMMARY | 2025-10-17 09:09 | XMS_ITS | Clinical Summary ---
Author Organization [facility] Address [address] [place] [id number] Care Team Providers Care Supervisor Road Administrator Name Role Phone Norman Medina MD Primary Care Provider [phone] Social History Tobacco Use Types Packs/Day Years [...] Td Vaccines ( 1 - Tdap) 1969 Pneumococcal Vaccine: 50+ Ye ars (1 of 1 - PCV) 2000 Zoster Vaccines (1 of 2) 2000 Annual Medicare Wellness Visit 2015 Dexa Scan (General) 2015 COVID-19 Vaccine ( - 2024-2 6 season) 2025 Influenza Adult (#1) 2025 RSV Immunization or 60+ Years (1 - 1-dose 75+ series) 2025 Hepatitis A Vaccines Aged Out No long er eligible based on patient's age to complete this topic Meningococcal B Vaccine Aged Out No l onger eligible based on patient's age to complete this topic Meningococcal Vaccine Aged Out No alex juliana eligible based on patient's age to complete this topic RSV Immunizations Under 20 Months Aged Out No longer eligible based on patient's age to complete this topic Insurance AETNA MEDICARE Care Teams Supervisor Road Administrator Relationship Specialty Start Date End Date Norman Medina MD [address] [place], [place] [id number] PCP - General FAMILY PRACTICE 03/01/24
--- OUTSIDE RECORDS SUMMARY | 2025-10-17 09:09 | XMS_ITS | Clinical Summary ---
Author Organization [facility] Address [address] [place] [address] Care Team Providers Care Industrial Health Engineer Name Role Phone Norman Medina MD Primary Care Provider [phone] Allergies No known active allergies Medications losartan [...] on file Legal Sex Female 2:43 AM DIAGRAM CLERK Gender Identity Not on file Sexual Orientation [...] 12/09/2022, 12/24 Insurance AETNA MEDICARE Care Teams Industrial Health Engineer Relationship Specialty Start Date End Date Norman Medina MD PCP - General Family Practice 06/21/24
== END 2025-10-17 08:48 | disposition home or self-care (01) ==
PROVIDERS: PCP Nurse Practitioner Family; Visit Provider Nurse Practitioner Family
DX: M43.12 Spondylolisthesis, cervical region (principal); M54.10 Radiculopathy, site unspecified
CPT/HCPCS: 72040; 72072